=== PATIENT | male | born 1940 | race African-American/Black ===

== ENCOUNTER 2016-09-21 06:42 | Inpatient (IN) | payer OTHER, BC ==
--- NOTE | 2016-09-21 07:10 | PDOC ---
History of Present Illness - General History Source: Patient, Old Records Exam Limitations: No Limitations - History of Present Illness Initial Comments: 09/21/16 07:25 The patient is a 75-year-old man with a significant past medical history of hypertension, diabetes mellitus, chronic obstructive pulmonary disease ( intubated in the past; last intubation was approximately 6 months ago), end- stage renal disease (on hemodialysis; q. M/W/F, last hemo-dialysis was on Monday and he received a full session) who presents to the emergency department for further evaluation of shortness of breath. Upon ER arrival, patient was noted to have an oxygen saturation of 89%, with a heart rate of 78 bpm, respiratory rate of 28, and blood pressure of 163/93. Patient was immediately placed on 3L nasal cannula with a noted improvement of his oxygen saturation to 96%. As per patient, he reports he has been short of breath since yesterday. He reports compliance with home albuterol treatments that provided temporary relief. He also reports associated symptoms of an intermittent productive cough with dark-green sputum. No fever, chills, weakness, chest pain, lightheadedness , dizzinesses, palpitation, headaches, abdominal pain, nausea, vomiting, diarrhea. No urinary complaints. Patient underwent a stress test on 01/19/2016 that was indicative for moderate inferior reversible defect that suggests mild ischemia with an ejection fraction of 43%. He also underwent an echocardiogram dated 12/17/2014 indicative for an impaired LV relaxation, mild mitral annular calcification, trace mitral regurgitation and mild tricuspid regurgitation. Allergies: No Known Drug Allergies Past Surgical History: Left AV fistula placement. Social History: No Tobacco, EtOH and recreational drug use. Primary Care Physician: Dr. Bonilla Valentine Manager Business Information: Dr. Val Reed Forge Hand: Dr. Margaret Howell Racquet Maker: Dr. Dameon Laws <Nay Mckeon - Last Filed: 09/21/16 09:17> - General History Source: Patient, Old Records Exam Limitations: No Limitations <Sara Fuentes - Last Filed: 09/21/16 10:09> - General Chief Complaint: Shortness of Breath Stated Complaint: DIFFICULTY BREATHING Time Seen by Provider: 09/21/16 07:09 Past History <Nay Mckeon - Last Filed: 09/21/16 09:17> - Past Medical History Asthma: Yes Diabetes: Yes HTN: Yes Suicide Attempt (Hx): No - Psycho/Social/Smoking Cessation Hx Suicidal Ideation: No Smoking History: Never smoked Have you smoked in the past 12 months: No Number of Cigarettes Smoked Daily: 0 If you are a former smoker, when did you quit?: 10YRS AGO Hx Alcohol Use: No Drug/Substance Use Hx: No Substance Use Type: None <Sara Fuentes - Last Filed: 09/21/16 10:09> - Past Medical History Allergies/Adverse Reactions: Allergies Allergy/AdvReac Type Severity Reaction Status Date / Time No Known Drug Allergies Allergy Verified 09/21/16 06:50 Home Medications: Ambulatory Orders Amlodipine Besylate [Norvasc -] 10 mg PO DAILY 12/17/14 Aspirin [Ecotrin] 81 mg PO DAILY 12/17/14 Carvedilol 25 mg PO BID 12/17/14 Glimepiride 4 mg PO BID 12/17/14 Ipratropium/Albuterol Sulfate [Combivent Respimat Inhal [place]] 14.7 gm IH DAILY 12/17/14 Latanoprost 0.005% Eye Drops [Xalatan 0.005% Eye Drops -] 0.005 drop OU DAILY Salmeterol/Fluticasone [Advair 100Mcg/50Mcg -] 1 inh IH DAILY 12/17/14 Sevelamer Carbonate [Renvela -] 800 mg PO TID 12/17/14 Simvastatin [Zocor -] 20 mg PO HS 12/17/14 Sitagliptin Phosphate [Januvia] 25 mg PO DAILY 12/17/14 Tiotropium [place] [Spiriva] 18 mcg IH DAILY 12/17/14 Docusate Sodium [Colace -] 100 mg PO TID 09/21/16 Review of Systems - Review of Systems Able to Perform ROS?: Yes Comments:: 09/21/16 07:27 CONSTITUTIONAL: Absent: fever, chills, diaphoresis, generalized weakness, malaise, loss of appetite HEENT: Absent: rhinorrhea, nasal congestion, throat pain, throat swelling, difficulty swallowing, mouth swelling, ear pain, eye pain, visual Changes CARDIOVASCULAR: Absent: chest pain, syncope, palpitations, irregular heart rate , lightheadedness, peripheral edema RESPIRATORY: Present: Cough. Shortness of Breath. Absent: dyspnea with exertion , orthopnea, wheezing, stridor, hemoptysis GASTROINTESTINAL:Absent: abdominal pain, abdominal distension, nausea, vomiting , diarrhea, constipation, melena, hematochezia GENITOURINARY: Absent: dysuria, frequency, urgency, hesitancy, hematuria, flank pain, genital pain MUSCULOSKELETAL: Absent: myalgia, arthralgia, joint swelling SKIN: Absent: rash, itching, pallor HEMATOLOGIC/IMMUNOLOGIC: Absent: easy bleeding, easy bruising, lymphadenopathy, frequent infections ENDOCRINE:Absent: unexplained weight gain, unexplained weight loss, heat intolerance, cold intolerance NEUROLOGIC: Absent: headache, focal weakness or paresthesias, dizziness, unsteady gait, seizure, mental status changes, bladder or bowel incontinence PSYCHIATRIC: Absent: anxiety, depression, suicidal or homicidal ideation, hallucinations <Nay Mckeon - Last Filed: 09/21/16 09:17> *Physical Exam - Vital Signs Last Vital Signs Temp Pulse Resp BP Pulse Ox 98 F 78 28 H 163/93 93 L 09/21/16 06:53 09/21/16 06:56 09/21/16 06:53 09/21/16 06:53 09/21/16 06:56 - Physical Exam Comments: 09/21/16 07:27 GENERAL: Well developed, well nourished. Awake and alert. No acute distress. HEENT: Normocephalic, atraumatic. PERRLA, EOMI. No conjunctival pallor. Sclera are non-icteric. Moist mucous membranes. Oropharynx is clear. NECK: Supple. Full ROM. No JVD. CARDIOVASCULAR: Regular rate and rhythm. No murmurs, rubs, or gallops. PULMONARY: +Diffuse wheezing in all lung yoder with rhonchi at the bilateral bases. ABDOMINAL: Soft. Non-tender. Non-distended. No rebound or guarding. No organomegaly. Normoactive bowel sounds. MUSCULOSKELETAL: Normal range of motion at all joints. No bony deformities or tenderness. No CVA tenderness. EXTREMITIES: No cyanosis. No clubbing. No peripheral edema. No calf tenderness. SKIN: Warm and dry. Normal capillary refill. No rashes. No jaundice. NEUROLOGICAL: Alert, awake, appropriate. Cranial nerves 2-12 intact. Normal speech. PSYCHIATRIC: Cooperative. Good eye contact. Appropriate mood and affect. <MikeNay - Last Filed: 09/21/16 09:17> - Vital Signs Last Vital Signs Temp Pulse Resp BP Pulse Ox 98 F 78 28 H 163/93 93 L 09/21/16 06:53 09/21/16 06:56 09/21/16 06:53 09/21/16 06:53 09/21/16 06:56 <Sara Fuentes - Last Filed: 09/21/16 10:09> Heart Score/ECG Review #1 09/21/16 07:36 Reviewed and interpreted by Dr. Sara Fuentes IMPRESSION: Right bundle branch block with a rate of [address] segment changes. No significant changed form prior EKG dated 10/20/2015 for comparison <MikeNay - Last Filed: 09/21/16 09:17> ED Treatment Course - LABORATORY CBC & Chemistry Diagram: 09/21/16 07:15 09/21/16 07:15 <Nay Mckeon - Last Filed: 09/21/16 09:17> - LABORATORY CBC & Chemistry Diagram: 09/21/16 07:15 09/21/16 07:15 <Sara Fuentes - Last Filed: 09/21/16 10:09> Medical Decision Making - Medical Decision Making 09/21/16 09:[address] Margaret Howell. Expecting Dr. Zavala to respond to the page. 09/21/16 09:[address] Bean Zavala. Case was discussed. 09/21/16 09:12 MicroBlogged Hospitalist. 09/21/16 09:17 Response by Hospitalist Nurse Practitioner, Aicha Boyd. Case was discussed. Accepts case. <MikeNay - Last Filed: 09/21/16 09:17> - Medical Decision Making 09/21/16 07:17 75 y/o male with h/o COPD, DM, HTN, ESRD on HD MWF (last dialysis was on Monday and he completed a normal session), glaucoma presents to the ED with c/o SOB since yesterday. DDx includes but is not limited to: COPD exacerbation, CHF, ACS, PNA, anemia, electrolyte abnormality, toxic/metabolic derangement. Plan: 1. EKG 2. Labs 3. CXR 4. Duoneb tx 5. Solumedrol 6. CXR 7. Observe and re-evaluate 09/21/16 10:08 Addendum: The labs were reviewed and are noted in the EMR. Chest x-ray was negative for acute pulmonary disease. The potassium was 5.4 but there were no EKG changes that were significant for hyperkalemia. After for DuoNeb treatments the patient's rhonchi were improved and he was moving good air but still had significant wheezing. I've spoken to the patient's ad terminal makeup operator who will arrange for dialysis today. The plan is to admit the patient to the hospital. Of note his troponin is elevated at 0.13. He has had elevated troponins in the past. We'll trend those troponins on [facility] floor. <Sara Fuentes - Last Filed: 09/21/16 10:09> *DC/Admit/Observation/Transfer - Attestations Scribe Attestion: 09/21/16 07:27 Documentation prepared by Nay Mckeon, acting as center medical specialist for Sara Fuentes MD. <Nay Mckeon - Last Filed: 09/21/16 09:17> - Discharge Dispostion Admit: Yes - Attestations Physician Attestion: 09/21/16 07:21 I, Dr. Sara Fuentes, attest that the scribes documentation that appears above has been prepared under my direction and personally reviewed by me in its entirety. I confirmed that the note above accurately reflects all work, treatment, procedures, and medical decision-making performed by me. <Sara Fuentes - Last Filed: 09/21/16 10:09> Diagnosis at time of Disposition: Shortness of breath, COPD exacerbation, ESRD (end stage renal disease) on dialysis - Discharge Dispostion Condition at time of disposition: Stable - Referrals Referrals: Bonilla Leslie MD [Primary Care Provider] -
[2016-09-21] MEDS ORDERED: methylPREDNISolone NA SUCC 125 MG/2 ML VIAL IVPB ONE (07:14)
[2016-09-21] MEDS ORDERED: ALBUTEROL SO4 2.5/IPRATROPIUM 0.5 INH SOL 3 ML VIAL.NEB. NEB ONE ×3 (07:15→09:01)
[2016-09-21] MEDS ORDERED: methylPREDNISolone NA SUCC 125 MG/2 ML VIAL ONE (07:15)
[2016-09-21] MEDS: ALBUTEROL SO4 2.5/IPRATROPIUM 0.5 INH SOL 3 ML VIAL.NEB. NEB SCH ×4 (07:27→09:25)
[2016-09-21 07:39] LABS: BASOPHIL 0.3 % (0-2.0); EOSINOPHIL 0.3 % (0-4.5); MCH 33.8 pg (25.7-33.7); MCHC 33.7 g/dl (32.0-35.9); MEAN CELL VOLUME 100.5 fl (80-96); MEAN PLT VOLUME 8.4 fl (7.5-11.1); NEUTROPHILS 78.4 % (42.8-82.8); PLATELET COUNT 102 K/MM3 (134-434); WHITE BLOOD COUNT 6.3 K/mm3 (4.0-10.0)
[2016-09-21 07:56] LABS: BILIRUBIN,TOTAL 0.9 mg/dL (0.2-1.0); CALCIUM 7.9 mg/dL (8.5-10.1)
[2016-09-21 08:01] LABS: TROPONIN I 0.13 ng/ml (0.00-0.05)
[2016-09-21 08:17] LABS: CREATININE 11.7 mg/dL (0.7-1.3)
--- NOTE | 2016-09-21 09:16 | HP ---
CHIEF COMPLAINT: Shortness of breath PCP: Dr. Leslie Arboriculturist: Dr. Laws Quality Control Checker: Dr. Azul HISTORY OF PRESENT ILLNESS: This is a 75 year old male with a history of ESRD on HD (M/W/F, last treatment Monday), COPD (not on home O2, history of intubation during exacerbation approximately 1 year ago at a hospital in [place]), HTN, NIDDM, and glaucoma who presents with his family for evaluation of worsening shortness of breath since last night. He also reports cough productive of yellow sputum. He denies fevers/chills, chest pain, increase in LE edema, or any other symptoms. ER course was notable for: (1) EKG: RBBB with a rate of [address] segment changes. No significant changed form prior EKG dated 10/20/2015 (2) K 5.4 (3) Troponin 0.13 (4) CXR: No acute process Recent Travel: None PAST MEDICAL HISTORY: As above PAST SURGICAL HISTORY: AVF Social History: Lives with , daughter, and son. 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 Smoking: Former smoker, quit 15 yrs ago Alcohol: None Drugs: None Allergies No Known Drug Allergies Allergy (Verified 09/21/16 06:50) HOME MEDICATIONS: Home Medications Medication Instructions Recorded Amlodipine Besylate [Norvasc -] 10 mg PO DAILY 12/17/14 Aspirin [Ecotrin] 81 mg PO DAILY 12/17/14 Carvedilol 25 mg PO BID 12/17/14 Glimepiride 4 mg PO BID 12/17/14 Ipratropium/Albuterol Sulfate 14.7 gm IH DAILY 12/17/14 [Combivent Respimat Inhal [place]] Latanoprost 0.005% Eye Drops 0.005 drop OU DAILY 12/17/14 [Xalatan 0.005% Eye Drops -] Salmeterol/Fluticasone [Advair 1 inh IH DAILY 12/17/14 100Mcg/50Mcg -] Sevelamer Carbonate [Renvela -] 800 mg PO TID 12/17/14 Simvastatin [Zocor -] 20 mg PO HS 12/17/14 Sitagliptin Phosphate [Januvia] 25 mg PO DAILY 12/17/14 Tiotropium [place] [Spiriva] 18 mcg IH DAILY 12/17/14 Cinacalcet HCl [Sensipar] 30 mg PO DAILY 09/21/16 Docusate Sodium [Colace -] 100 mg PO TID 09/21/16 REVIEW OF SYSTEMS CONSTITUTIONAL: Absent: fever, chills, diaphoresis, generalized weakness, malaise, loss of appetite, weight change HEENT: Absent: rhinorrhea, nasal congestion, throat pain, throat swelling, difficulty swallowing, mouth swelling, ear pain, eye pain, visual changes CARDIOVASCULAR: Absent: chest pain, syncope, palpitations, irregular heart rate, lightheadedness , peripheral edema RESPIRATORY: See HPI GASTROINTESTINAL: Absent: abdominal pain, abdominal distension, nausea, vomiting, diarrhea, constipation, melena, hematochezia GENITOURINARY: Anuric Absent: flank pain, genital pain MUSCULOSKELETAL: Absent: myalgia, arthralgia, joint swelling, back pain, neck pain SKIN: Absent: rash, itching, pallor HEMATOLOGIC/IMMUNOLOGIC: Absent: easy bleeding, easy bruising, lymphadenopathy, frequent infections ENDOCRINE: Absent: unexplained weight gain, unexplained weight loss, heat intolerance, cold intolerance NEUROLOGIC: Absent: headache, focal weakness or paresthesias, dizziness, unsteady gait, seizure, mental status changes, bladder or bowel incontinence PSYCHIATRIC: Absent: anxiety, depression, suicidal or homicidal ideation, hallucinations. PHYSICAL EXAMINATION Vital Signs - 24 hr 09/21/16 09/21/16 06:53 06:56 Temperature 98 F Pulse Rate 78 78 Respiratory 28 H Rate Blood Pressure 163/93 O2 Sat by Pulse 89 L 93 L Oximetry (%) GENERAL: Awake, alert, and fully oriented, in no acute distress. HEAD: Normal with no signs of trauma. EYES: Pupils equal, round and reactive to light, extraocular movements intact, sclera anicteric, conjunctiva clear. No lid lag. EARS, NOSE, THROAT: Ears normal, nares patent, oropharynx clear without exudates. Moist mucous membranes. NECK: Normal range of motion, supple without lymphadenopathy, JVD, or masses. LUNGS: Tachypneic. Expiratory wheezing in all lung yoder with poor air entry bilaterally. Able to speak in full sentences and maintaining saturation on O2/ nebulizers via facemask. HEART: Regular rate and rhythm, normal S1 and S2 without murmur, rub or gallop. ABDOMEN: Soft, nontender, not distended, normoactive bowel sounds, no guarding, no rebound, no masses. No hepatomegaly or splenomegaly. MUSCULOSKELETAL: Normal range of motion at all joints. No bony deformities or tenderness. No CVA tenderness. UPPER EXTREMITIES: 2+ pulses, warm, well-perfused. No cyanosis. No clubbing. No peripheral edema. LOWER EXTREMITIES: 2+ pulses, warm, well-perfused. No calf tenderness. Trace LE edema bilaterally. NEUROLOGICAL: Cranial nerves II-XII intact. Normal speech. Normal gait. PSYCHIATRIC: Cooperative. Good eye contact. Appropriate mood and affect. SKIN: Warm, dry, normal turgor, no rashes or lesions noted, normal capillary refill. Laboratory Results - last 24 hr 09/21/16 09/21/16 09/21/16 07:15 07:15 07:15 WBC 6.3 D RBC 3.60 L Hgb 12.2 D Hct 36.2 MCV 100.5 H MCHC 33.7 RDW 16.0 H D Plt Count 102 L D MPV 8.4 Neutrophils % 78.4 Lymphocytes % 12.6 D Monocytes % 8.4 Eosinophils % 0.3 Basophils % 0.3 Sodium 134 L Potassium 5.4 H Chloride 97 L Carbon Dioxide 24 D Anion Gap 13 BUN 55 H D Creatinine 11.7 H* D Creat Clearance w eGFR 4.26 Random Glucose 105 D Calcium 7.9 L Total Bilirubin 0.9 D AST 30 D ALT 20 D Alkaline Phosphatase 90 Creatine Kinase 270 D Creatine Kinase Index 2.7 CK-MB (CK-2) 7.306 H CK-MB (CK-2) Rel Index Cancelled Troponin I 0.13 H D B-Natriuretic Peptide 65707.03 H Total Protein 7.0 Albumin 4.0 D ASSESSMENT/PLAN: 75 year old male with COPD exacerbation. Problem List - Problem (1) COPD exacerbation Assessment/Plan: -Received Solu-Medrol 125mg IVPB in ED -Continue 40mg IVPB q8h, taper as tolerated -DuoNebs q4 standing -Supplemental O2 as needed -Pulmonary evaluation Code(s): J44.1 - CHRONIC OBSTRUCTIVE PULMONARY DISEASE W (ACUTE) EXACERBATION (2) Elevated troponin Assessment/Plan: -In the setting of ESRD with HD due today -No EKG changes, no chest pain -Trend Code(s): R74.8 - ABNORMAL LEVELS OF OTHER SERUM ENZYMES (3) ESRD (end stage renal disease) on dialysis Assessment/Plan: -For HD today -Continue Renvela, Sensipar -Renal diet Code(s): N18.6 - END STAGE RENAL DISEASE Z99.2 - DEPENDENCE ON RENAL DIALYSIS (4) HTN (hypertension) Assessment/Plan: -Above goal -Continue Norvasc, Coreg -Re-assess after HD Code(s): I10 - ESSENTIAL (PRIMARY) HYPERTENSION (5) Diabetes Assessment/Plan: -Hold Januvia while inpatient -FSACHS -ISS -Diabetic diet Code(s): E11.9 - TYPE 2 DIABETES MELLITUS WITHOUT COMPLICATIONS (6) Hyperkalemia Assessment/Plan: -No EKG changes -Expect resolution with HD -Follow Code(s): E87.5 - HYPERKALEMIA (7) DVT prophylaxis Assessment/Plan: -Ambulation -[facility] Code(s): IVM9538 - Visit type - Emergency Visit Emergency Visit: Yes ED Registration Date: 09/21/16 Care time: The patient presented to the Emergency Department on the above date and was hospitalized for further evaluation of their emergent condition. - New Patient This patient is new to me today: Yes Date on this admission: 09/21/16 - Critical Care Critical Care patient: No
[2016-09-21] MEDS ORDERED: ACETAMINOPHEN 325 MG TABLET (FP) PO PRN (09:42)
[2016-09-21] MEDS ORDERED: ONDANSETRON 4 MG/2 ML VIAL IVPB PRN (09:42)
[2016-09-21] MEDS ORDERED: methylPREDNISolone NA SUCC 40 MG/1 ML VIAL IVPB SCH ×2 (10:00→15:00)
[2016-09-21] MEDS ORDERED: amLODIPine BESYLATE 5 MG TABLET (FP) ONE (11:08)
[2016-09-21] MEDS ORDERED: CARVEDILOL 12.5 MG TABLET (FP) ONE (11:08)
[2016-09-21] MEDS: HEPARIN NA (PORCINE) 5,000 UNITS/ML 1ML VIAL SQ SCH ×2 (11:34→21:37)
[2016-09-21] MEDS: ASPIRIN COATED 81 MG TABLET.EC PO SCH (11:34)
[2016-09-21] MEDS: CARVEDILOL 25 MG TABLET (FP) PO SCH ×2 (11:34→21:04)
[2016-09-21] MEDS: amLODIPine BESYLATE 10 MG TABLET (FP) PO SCH (11:34)
[2016-09-21] MEDS: CINACALCET HCL 30 MG TAB (FP) PO SCH (11:35)
[2016-09-21] MEDS ORDERED: ALBUTEROL SO4 2.5/IPRATROPIUM 0.5 INH SOL 3 ML VIAL.NEB. NEB SCH (12:00)
--- NOTE | 2016-09-21 12:52 | CONSULT ---
Consult - text type - Consultation Consultation Note: Renal Consult for ESRD on HD This is a 75 year old Gentleman with PMhx of ESRD on HD (MWF at [facility]), COPD, Hypertension, DM Type 2 who presented from the dialysis unit with difficulty breathing and found to have acute COPD exacerbation. Pt states that his COPD is usually well controlled. Denies any chest pain, N/V/D, fever, chills. No sick contract. Last dialysis was on Monday. Has a AVF. No access problems. Denies any swelling in the legs. Pt is anuric now. PMhx: as above Allergies: NKDA Family hx: NC Social Hx: No T/A/D ROS: As per HPI, all other pertinent ros negative Home Meds: Home Medications Medication Instructions Recorded Amlodipine Besylate [Norvasc -] 10 mg PO DAILY 12/17/14 Aspirin [Ecotrin] 81 mg PO DAILY 12/17/14 Carvedilol 25 mg PO BID 12/17/14 Glimepiride 4 mg PO BID 12/17/14 Ipratropium/Albuterol Sulfate 14.7 gm IH DAILY 12/17/14 [Combivent Respimat Inhal [place]] Latanoprost 0.005% Eye Drops 0.005 drop OU DAILY 12/17/14 [Xalatan 0.005% Eye Drops -] Salmeterol/Fluticasone [Advair 1 inh IH DAILY 12/17/14 100Mcg/50Mcg -] Sevelamer Carbonate [Renvela -] 800 mg PO TID 12/17/14 Simvastatin [Zocor -] 20 mg PO HS 12/17/14 Sitagliptin Phosphate [Januvia] 25 mg PO DAILY 12/17/14 Tiotropium [place] [Spiriva] 18 mcg IH DAILY 12/17/14 Docusate Sodium [Colace -] 100 mg PO TID 09/21/16 Vital Signs Temperature 98 F 09/21/16 06:53 Pulse Rate 78 09/21/16 06:56 Respiratory Rate 28 H 09/21/16 06:53 Blood Pressure 163/93 09/21/16 06:53 O2 Sat by Pulse Oximetry (%) 99 09/21/16 07:15 Intake & Output 09/18/16 09/19/16 09/20/16 09/21/16 23:59 23:59 23:59 23:59 Weight 194 lb 3.636 oz Gen: NAD, awake and alert HEENT: NC/AT, MMM, No JVD CVS: RRR, no M/R Lungs: Dec BS, no rales Abd: soft NT/ND ext: no edema, clubbing or cyanosis Access: Left ARM AVF CBC, BMP 09/21/16 07:15 09/21/16 07:15 Current Medications Acetaminophen (Tylenol -) 650 mg PO Q4H PRN PRN Reason: FEVER OR PAIN Albuterol/Ipratropium (Duoneb -) 1 amp NEB QIDR [facility] Amlodipine Besylate (Norvasc -) 10 mg PO DAILY [facility] Last Admin: 09/21/16 11:34 Dose: 10 mg Aspirin (Ecotrin -) 81 mg PO DAILY [facility] Last Admin: 09/21/16 11:34 Dose: 81 mg Atorvastatin Calcium (Lipitor -) 10 mg PO HS [facility] Carvedilol (Coreg -) 25 mg PO BID [facility] Last Admin: 09/21/16 11:34 Dose: 25 mg Cinacalcet (Sensipar -) 30 mg PO DAILY [facility] Last Admin: 09/21/16 11:35 Dose: Not Given Docusate Sodium (Colace -) 100 mg PO TID [facility] Heparin Sodium (Porcine) (Heparin -) 5,000 unit SQ BID [facility] Last Admin: 09/21/16 11:34 Dose: 5,000 unit Insulin Aspart (Novolog Vial Sliding Scale -) 1 vial SQ ACHS [facility] PRN Reason: Protocol Latanoprost (Xalatan 0.005% Eye Drops -) 1 drop OU HS [facility] Methylprednisolone Sodium Succinate (Solu-Medrol -) 40 mg IVPB Q8H-IV [facility] Last Admin: 09/21/16 11:35 Dose: 40 mg Ondansetron HCl (Zofran Injection) 4 mg IVPB Q6H PRN PRN Reason: NAUSEA Sevelamer Carbonate (Renvela -) 800 mg PO TIDCM [facility] A/P 75 year old Gentleman with PMhx of ESRD on HD (MWF at [facility]), COPD, Hypertension , DM Type 2 who presented from the dialysis unit with difficulty breathing and found to have acute COPD exacerbation. #COPD exacerbation s/p Duo-Nebs on IV solumederol consider pulmonary eval #ESRD on HD For HD today will UF to dry weight of 86kg dose all meds for intermittent HD #Hypertension continue Coreg #Renal Osteodystrphy continue Sensipar, Renvela Trend PHos and CA #Mild Hyponatremia and Hyperkalemia expect to correct with HD Thank you Bean Zavala DO
--- NOTE | 2016-09-21 13:24 | EKG ---
Test Reason : Blood Pressure : / mmHG Vent. Rate : 081 BPM Atrial Rate : 081 BPM P-R Int : 156 ms QRS Dur : 154 ms QT Int : 410 ms P-R-T Axes : 063 -69 052 degrees QTc Int : 476 ms NORMAL SINUS RHYTHM RIGHT BUNDLE BRANCH BLOCK LEFT ANTERIOR FASCICULAR BLOCK BIFASCICULAR BLOCK MINIMAL VOLTAGE CRITERIA FOR LVH, MAY BE NORMAL VARIANT ABNORMAL ECG WHEN COMPARED WITH ECG OF 20-OCT-2015 12:07, NO SIGNIFICANT CHANGE WAS FOUND Confirmed by LYNN CHAN, COCO ([id number]) on 09/21/2016 1:23:31 PM Referred By: Confirmed By:COCO BAILEY MD
[2016-09-21] MEDS ORDERED: ALBUTEROL SO4 0.083% IH SOL 2.5 MG/3 ML VIAL.NEB. NEB PRN (13:32)
--- NOTE | 2016-09-21 13:36 | CONSULT ---
Consultation: REQUESTING PROVIDER: CONSULT REQUEST: We have been asked to medically evaluate this patient for ( pulmonology). HISTORY OF PRESENT ILLNESS: This is a 75 year old male with a history of ESRD on HD (M/W/, last treatment Monday), COPD (not on home O2, history of intubation during exacerbation approximately 1 year ago at a hospital in [place]), HTN, NIDDM, came to hospital with a complaint of sob. Patient states that sob started last morning and he took his inhalers, cough syrup but sob kept on increasing and he came to hospital this morning. Denies orthopnea, pedal edema, fever, chills. States he has cough from yesterday morning and produces yellow color sputum. Denies sick contact. Denies orthopnea, pedal edema, fever, chills. In ed patient got duoneb and solumedrol but he still complains of sob and is wheezing. On NC 3L, 97 spo2 diffuse b/l expiratory wheez . REVIEW OF SYSTEMS: CONSTITUTIONAL: Absent: fever, chills, diaphoresis, HEENT: Absent: rhinorrhea, nasal congestion, throat pain, throat swelling, CARDIOVASCULAR: Absent: chest pain, syncope, palpitations, irregular heart rate, lightheadedness , peripheral edema RESPIRATORY: Absent: cough, shortness of breath, , orthopnea, wheezing, stridor, hemoptysis GASTROINTESTINAL: Absent: abdominal pain, abdominal distension, nausea, vomiting, PHYSICAL EXAMINATION Vital Signs - 24 hr 09/21/16 09/21/16 11:00 13:07 Pulse Rate [ 76 78 Radial] Respiratory 18 18 Rate Blood Pressure 153/73 151/72 [Right Arm] O2 Sat by Pulse 95 99 Oximetry (%) GENERAL: Awake, alert, and fully oriented, HEAD: Normal with no signs of trauma. EYES: Pupils equal, round and reactive to light, EARS, NOSE, THROAT: oropharynx clear without exudates. NECK: Normal range of motion, supple without lymphadenopathy, JVD, LUNGS: b/l decreased air entry, diffuse wheezing b/l in expiration HEART:s1s2 normal ABDOMEN: Soft, nontender, not distended, normoactive bowel sounds, UPPER EXTREMITIES: 2+ pulses, warm, well-perfused. . LOWER EXTREMITIES: warm, . No calf tenderness. No peripheral edema. Active Medications Generic Name Dose Route Start Last Admin Trade Name Freq PRN Reason Stop Dose Admin Acetaminophen 650 mg 09/21/16 09:42 Tylenol - PO Q4H PRN FEVER OR PAIN Albuterol Sulfate 1 amp 09/21/16 13:32 Ventolin 0.083% Nebulizer Soln - NEB Q4H PRN SHORT OF BREATH/WHEEZING Albuterol/Ipratropium 1 amp 09/21/16 12:00 Duoneb - NEB QIDR SANDEEP Amlodipine Besylate 10 mg 09/21/16 10:00 09/21/16 11:34 Norvasc - PO 10 mg DAILY SANDEEP Administration Aspirin 81 mg 09/21/16 10:00 09/21/16 11:34 Ecotrin - PO 81 mg DAILY SANDEEP Administration Atorvastatin Calcium 10 mg 09/21/16 22:00 Lipitor - PO HS [facility] Carvedilol 25 mg 09/21/16 10:00 09/21/16 11:34 Coreg - PO 25 mg BID SANDEEP Administration Cinacalcet 30 mg 09/21/16 10:00 09/21/16 11:35 Sensipar - PO Not Given DAILY [facility] Docusate Sodium 100 mg 09/21/16 14:00 Colace - PO TID [facility] Heparin Sodium (Porcine) 5,000 unit 09/21/16 10:00 09/21/16 11:34 Heparin - SQ 5,000 unit BID [facility] Administration Azithromycin 500 mg/ Dextrose 250 mls @ 250 mls/hr 09/22/16 10:00 IVPB DAILY [facility] Insulin Aspart 1 vial 09/21/16 11:00 Novolog Vial Sliding Scale - SQ ACHS [facility] Protocol Latanoprost 1 drop 09/21/16 10:00 Xalatan 0.005% Eye Drops - OU HS [facility] Magnesium Sulfate 1 gm 09/21/16 13:35 Magnesium Sulfate IVPB 09/21/16 13:36 ONCE ONE Methylprednisolone Sodium Succinate 40 mg 09/21/16 15:00 Solu-Medrol - IVPB Q6H-IV SANDEEP Sevelamer Carbonate 800 mg 09/21/16 12:00 Renvela - PO TIDCM [facility] CBCD WBC 6.3 K/mm3 (4.0-10.0) D 09/21/16 07:15 RBC 3.60 M/mm3 (4.00-5.60) L 09/21/16 07:15 Hgb 12.2 GM/dL (11.7-16.9) D 09/21/16 07:15 Hct 36.2 % (35.4-49) 09/21/16 07:15 MCV 100.5 fl (80-96) H 09/21/16 07:15 MCHC 33.7 g/dl (32.0-35.9) 09/21/16 07:15 RDW 16.0 % (11.9-15.9) H D 09/21/16 07:15 Plt Count 102 K/MM3 (134-434) L D 09/21/16 07:15 MPV 8.4 fl (7.5-11.1) 09/21/16 07:15 CMP Sodium 134 mmol/L (136-145) L 09/21/16 07:15 Potassium 5.4 mmol/L (3.5-5.1) H 09/21/16 07:15 Chloride 97 mmol/L (98-107) L 09/21/16 07:15 Carbon Dioxide 24 mmol/L (21-32) D 09/21/16 07:15 Anion Gap 13 (8-16) 09/21/16 07:15 BUN 55 mg/dL (7-18) H D 09/21/16 07:15 Creatinine 11.7 mg/dL (0.7-1.3) H* D 09/21/16 07:15 Creat Clearance w eGFR 4.26 (>60) 09/21/16 07:15 Random Glucose 105 mg/dL (74-106) D 09/21/16 07:15 Calcium 7.9 mg/dL (8.5-10.1) L 09/21/16 07:15 Total Bilirubin 0.9 mg/dL (0.2-1.0) D 09/21/16 07:15 AST 30 U/L (15-37) D 09/21/16 07:15 ALT 20 U/L (12-78) D 09/21/16 07:15 Alkaline Phosphatase 90 U/L (45-117) 09/21/16 07:15 Total Protein 7.0 g/dl (6.4-8.2) 09/21/16 07:15 Albumin 4.0 g/dl (3.4-5.0) D 09/21/16 07:15 CARDIAC ENZYMES Creatine Kinase 270 IU/L (39-308) D 09/21/16 07:15 Troponin I 0.13 ng/ml (0.00-0.05) H D 09/21/16 07:15 ASSESSMENT/PLAN: #COPD exacerbation # URI ? pneumonia #ESRD on HD # h/o Hypertension # h/o DM # hyponatremia # hyperkalemia #lung nodule Plan Iv solumedrol 60mg q6h IV magnesium 1gm once albuterol neb q6h sandeep spiriva inhaler daily symbicort bid oxygen keep spo2> 90 get sputum culture iv azithromycin monitor ad control BP outpatient follow up with pulmonolgist for lung nodule HD as per nephrology dvt prophylaxis: on heparin Dispo: We will continue to follow the patient. Thank you for this consultative opportunity. Visit type - Emergency Visit Emergency Visit: Yes ED Registration Date: 09/21/16 Care time: The patient presented to the Emergency Department on the above date and was hospitalized for further evaluation of their emergent condition. - New Patient This patient is new to me today: Yes Date on this admission: 09/21/16 - Critical Care Critical Care patient: No
[2016-09-21] MEDS ORDERED: MAGNESIUM SULF 50% (8.12 MEQ/2 ML-1 GM VIAL) IVPB ONE (14:30)
[2016-09-21] MEDS: SEVELAMER CARBONATE 800 MG TAB (FP) PO SCH ×2 (14:40→17:25)
[2016-09-21] MEDS: DOCUSATE SODIUM 100 MG CAPSULE (FP) PO SCH ×2 (14:40→21:04)
[2016-09-21] MEDS: INSULIN SLIDING SCALE (NOVOLOG) 1 VIAL SQ SCH ×3 (14:40→21:13)
--- NOTE | 2016-09-21 14:55 | PN ---
Teaching Attending Note Name of Resident: Edmund Webber ATTENDING PHYSICIAN STATEMENT I saw and evaluated the patient. I reviewed the resident's note and discussed the case with the resident. I agree with the resident's findings and plan as documented. PULMONARY IMP ACUTE HYPOXEMIC RESPIRATORY FAILURE SECONDARY TO COPD EXACERBATION URI ESRD ON HD HTN DM HYPONATREMIA HYPERKALEMIA PULMONARY NODULE PLAN IV STEROIDS INHALED BRONCHODILATORS ANTIBIOTICS NASAL O2 SPUTUM C+S CHEST CT HD PER RENAL DR STRAUSS Problem List - Problems (1) COPD exacerbation Code(s): J44.1 - CHRONIC OBSTRUCTIVE PULMONARY DISEASE W (ACUTE) EXACERBATION (2) DVT prophylaxis Code(s): OHT1324 - (3) Diabetes Code(s): E11.9 - TYPE 2 DIABETES MELLITUS WITHOUT COMPLICATIONS Qualifiers: Diabetes mellitus type: type 2 Diabetes mellitus complication status: with kidney complications Diabetes mellitus complication detail: with chronic kidney disease Diabetes mellitus fci insulin use: without intermediate project manager use Chronic kidney disease stage: on chronic dialysis Qualified Code(s): E11.22 - Type 2 diabetes mellitus with diabetic chronic kidney disease; N18.1 - Chronic kidney disease, stage 1; Z79.4 - intermediate project manager ( current) use of insulin (4) ESRD (end stage renal disease) on dialysis Code(s): N18.6 - END STAGE RENAL DISEASE Z99.2 - DEPENDENCE ON RENAL DIALYSIS (5) HTN (hypertension) Code(s): I10 - ESSENTIAL (PRIMARY) HYPERTENSION Qualifiers: Hypertension type: essential hypertension Qualified Code(s): I10 - Essential (primary) hypertension (6) Hyperkalemia Code(s): E87.5 - HYPERKALEMIA (7) Shortness of breath Code(s): R06.02 - SHORTNESS OF BREATH (8) Acute hypoxemic respiratory failure Code(s): J96.01 - ACUTE RESPIRATORY FAILURE WITH HYPOXIA
[2016-09-21 15:06] LABS: TROPONIN I 0.13 ng/ml (0.00-0.05)
[2016-09-21] MEDS: methylPREDNISolone NA SUCC 125 MG/2 ML VIAL IVPB SCH ×2 (16:18→21:04)
[2016-09-21] MEDS: LATANOPROST 0.005% OPHTH SOLN 2.5ML BOTTLE OU SCH ×2 (16:19→22:12)
[2016-09-21 18:21] VITALS: BMI 26.6
[2016-09-21] MEDS: ALBUTEROL SO4 0.083% IH SOL 2.5 MG/3 ML VIAL.NEB. NEB SCH ×2 (18:53→23:39)
[2016-09-21 20:06] LABS: TROPONIN I 0.1 ng/ml (0.00-0.05)
[2016-09-21] MEDS: ATORVASTATIN CA 10 MG TABLET (FP) PO SCH (21:05)
[2016-09-21] MEDS: BUDESONIDE/FORMETEROL FUMARATE 160/4.5 mcg INHALER IH SCH (21:09)
[2016-09-22] MEDS ORDERED: ALBUTEROL SO4 0.083% IH SOL 2.5 MG/3 ML VIAL.NEB. NEB PRN (01:26)
[2016-09-22] MEDS: ALBUTEROL SO4 2.5/IPRATROPIUM 0.5 INH SOL 3 ML VIAL.NEB. NEB SCH ×5 (02:00→23:21)
[2016-09-22] MEDS: methylPREDNISolone NA SUCC 125 MG/2 ML VIAL IVPB SCH ×4 (02:23→22:01)
[2016-09-22] MEDS: DOCUSATE SODIUM 100 MG CAPSULE (FP) PO SCH ×3 (06:29→22:02)
[2016-09-22] MEDS: INSULIN SLIDING SCALE (NOVOLOG) 1 VIAL SQ SCH ×4 (06:29→22:21)
[2016-09-22 07:05] LABS: BASOPHIL 0.1 % (0-2.0); MCH 33.8 pg (25.7-33.7); MCHC 33.8 g/dl (32.0-35.9); MEAN CELL VOLUME 99.9 fl (80-96); MEAN PLT VOLUME 8.4 fl (7.5-11.1); NEUTROPHILS 86.4 % (42.8-82.8); PLATELET COUNT 100 K/MM3 (134-434); RDW 15.7 % (11.9-15.9); WHITE BLOOD COUNT 4.8 K/mm3 (4.0-10.0)
[2016-09-22 07:44] LABS: ALBUMIN 3.4 g/dl (3.4-5.0); CALCIUM 8.3 mg/dL (8.5-10.1); MAGNESIUM 2.5 mg/dL (1.8-2.4)
[2016-09-22 07:56] LABS: BILIRUBIN,TOTAL 0.7 mg/dL (0.2-1.0); COCKROFT - GAULT 8.48; TOT PROT 6.2 g/dl (6.4-8.2); TROPONIN I 0.11 ng/ml (0.00-0.05)
[2016-09-22] MEDS: SEVELAMER CARBONATE 800 MG TAB (FP) PO SCH ×3 (08:56→17:40)
[2016-09-22 09:18] LABS: CREATININE 8.7 mg/dL (0.7-1.3)
[2016-09-22] MEDS ORDERED: TIOTROPIUM BROMIDE 18 MCG/INH (DEVICE W/ 5 CAPSULES) IH SCH ×2 (10:00→22:00)
[2016-09-22] MEDS: CINACALCET HCL 30 MG TAB (FP) PO SCH (10:08)
[2016-09-22] MEDS: amLODIPine BESYLATE 10 MG TABLET (FP) PO SCH (10:08)
[2016-09-22] MEDS: CARVEDILOL 25 MG TABLET (FP) PO SCH ×2 (10:09→22:02)
[2016-09-22] MEDS: HEPARIN NA (PORCINE) 5,000 UNITS/ML 1ML VIAL SQ SCH ×2 (10:09→22:02)
[2016-09-22] MEDS: AZITHROMYCIN IVPB 250 ML IVPB SCH (10:09)
[2016-09-22] MEDS: BUDESONIDE/FORMETEROL FUMARATE 160/4.5 mcg INHALER IH SCH ×2 (10:09→22:02)
[2016-09-22] MEDS: ASPIRIN COATED 81 MG TABLET.EC PO SCH (10:09)
--- NOTE | 2016-09-22 10:13 | PN ---
Teaching Attending Note Name of Resident: Theodore Miner ATTENDING PHYSICIAN STATEMENT I saw and evaluated the patient. I reviewed the resident's note and discussed the case with the resident. I agree with the resident's findings and plan as documented. SUBJECTIVE: Patient is c/o having difficulty breathing. No fever or chills, no headache. OBJECTIVE: Vital Signs Temperature 98 F 09/22/16 06:00 Pulse Rate 86 09/22/16 06:00 Respiratory Rate 30 H 09/22/16 06:00 Blood Pressure 130/67 09/22/16 06:00 O2 Sat by Pulse Oximetry (%) 95 09/21/16 21:00 CBCD WBC 4.8 K/mm3 (4.0-10.0) 09/22/16 06:20 RBC 3.41 M/mm3 (4.00-5.60) L 09/22/16 06:20 Hgb 11.5 GM/dL (11.7-16.9) L 09/22/16 06:20 Hct 34.1 % (35.4-49) L 09/22/16 06:20 MCV 99.9 fl (80-96) H 09/22/16 06:20 MCHC 33.8 g/dl (32.0-35.9) 09/22/16 06:20 RDW 15.7 % (11.9-15.9) 09/22/16 06:20 Plt Count 100 K/MM3 (134-434) L 09/22/16 06:20 MPV 8.4 fl (7.5-11.1) 09/22/16 06:20 CMP Sodium 140 mmol/L (136-145) 09/22/16 06:20 Potassium 4.8 mmol/L (3.5-5.1) 09/22/16 06:20 Chloride 99 mmol/L (98-107) 09/22/16 06:20 Carbon Dioxide 29 mmol/L (21-32) D 09/22/16 06:20 Anion Gap 12 (8-16) 09/22/16 06:20 BUN 41 mg/dL (7-18) H D 09/22/16 06:20 Creatinine 8.7 mg/dL (0.7-1.3) H* D 09/22/16 06:20 Creat Clearance w eGFR 6.00 (>60) 09/22/16 06:20 Random Glucose 148 mg/dL (74-106) H D 09/22/16 06:20 Calcium 8.3 mg/dL (8.5-10.1) L 09/22/16 06:20 Total Bilirubin 0.7 mg/dL (0.2-1.0) D 09/22/16 06:20 AST 22 U/L (15-37) D 09/22/16 06:20 ALT 17 U/L (12-78) 09/22/16 06:20 Alkaline Phosphatase 70 U/L (45-117) D 09/22/16 06:20 Total Protein 6.2 g/dl (6.4-8.2) L 09/22/16 06:20 Albumin 3.4 g/dl (3.4-5.0) 09/22/16 06:20 CARDIAC ENZYMES Creatine Kinase 199 IU/L (39-308) 09/21/16 19:00 Troponin I 0.11 ng/ml (0.00-0.05) H 09/22/16 06:20 Current Medications Generic Name Dose Route Start Last Admin Trade Name Freq PRN Reason Stop Dose Admin Acetaminophen 650 mg 09/21/16 09:42 Tylenol - PO Q4H PRN FEVER OR PAIN Albuterol Sulfate 1 amp 09/22/16 01:26 Ventolin 0.083% Nebulizer Soln - NEB Q4H PRN WHEEZING Albuterol/Ipratropium 1 amp 09/22/16 01:26 09/22/16 06:05 Duoneb - NEB 1 amp QIDR MADELIN Administration Amlodipine Besylate 10 mg 09/21/16 10:00 09/21/16 11:34 Norvasc - PO 10 mg DAILY MADELIN Administration Aspirin 81 mg 09/21/16 10:00 09/21/16 11:34 Ecotrin - PO 81 mg DAILY MADELIN Administration Atorvastatin Calcium 10 mg 09/21/16 22:00 09/21/16 21:05 Lipitor - PO 10 mg HS MADELIN Administration Budesonide/Formoterol Fumarate 2 puff 09/21/16 22:00 09/21/16 21:09 Symbicort 160/4.5mcg - IH 2 puff BID MADELIN Administration Carvedilol 25 mg 09/21/16 10:00 09/21/16 21:04 Coreg - PO 25 mg BID MADELIN Administration Cinacalcet 30 mg 09/21/16 10:00 09/21/16 11:35 Sensipar - PO Not Given DAILY COUNTS INCLUDE 234 BEDS AT THE [facility] Docusate Sodium 100 mg 09/21/16 14:00 09/22/16 06:29 Colace - PO 100 mg TID MADELIN Administration Heparin Sodium (Porcine) 5,000 unit 09/21/16 10:00 09/21/16 21:37 Heparin - SQ 5,000 unit BID MADELIN Administration Azithromycin 250 mls @ 250 mls/hr 09/22/16 10:00 Zithromax 500mg Ivpb (Pre-Docked) IVPB DAILY COUNTS INCLUDE 234 BEDS AT THE [facility] Insulin Aspart 1 vial 09/21/16 11:00 09/22/16 06:29 Novolog Vial Sliding Scale - SQ Not Given ACHS COUNTS INCLUDE 234 BEDS AT THE [facility] Protocol Latanoprost 1 drop 09/21/16 10:00 09/21/16 22:12 Xalatan 0.005% Eye Drops - OU 1 drop HS COUNTS INCLUDE 234 BEDS AT THE [facility] Administration Methylprednisolone Sodium Succinate 60 mg 09/21/16 15:00 09/22/16 08:56 Solu-Medrol - IVPB 60 mg Q6H-IV COUNTS INCLUDE 234 BEDS AT THE [facility] Administration Sevelamer Carbonate 800 mg 09/21/16 12:00 09/22/16 08:56 Renvela - PO 800 mg TIDCM COUNTS INCLUDE 234 BEDS AT THE [facility] Administration Tiotropium [place] 1 puff 09/22/16 10:00 Spiriva - IH DAILY COUNTS INCLUDE 234 BEDS AT THE [facility] Home Medications Medication Instructions Recorded Amlodipine Besylate [Norvasc -] 10 mg PO DAILY 12/17/14 Aspirin [Ecotrin] 81 mg PO DAILY 12/17/14 Carvedilol 25 mg PO BID 12/17/14 Glimepiride 4 mg PO BID 12/17/14 Ipratropium/Albuterol Sulfate 14.7 gm IH DAILY 12/17/14 [Combivent Respimat Inhal [place]] Latanoprost 0.005% Eye Drops 0.005 drop OU DAILY 12/17/14 [Xalatan 0.005% Eye Drops -] Salmeterol/Fluticasone [Advair 1 inh IH DAILY 12/17/14 100Mcg/50Mcg -] Sevelamer Carbonate [Renvela -] 800 mg PO TID 12/17/14 Simvastatin [Zocor -] 20 mg PO HS 12/17/14 Sitagliptin Phosphate [Januvia] 25 mg PO DAILY 12/17/14 Tiotropium [place] [Spiriva] 18 mcg IH DAILY 12/17/14 Docusate Sodium [Colace -] 100 mg PO TID 09/21/16 PE: as per resident's note ASSESSMENT AND PLAN: Patient is a 75 year old Gentleman with PMhx of ESRD on HD (MWF at [facility]), COPD, Hypertension, DM Type 2 who presented from the dialysis unit with difficulty breathing and found to have acute COPD exacerbation. # Acute COPD exacerbation on IV solu medrol 60mg q6 ,continue Nebs txs , Zithromax. Pulmonary consult appreciated . #ESRD on HD ([facility] Dr Zavala on the case, will be going for HD in am ; continue Sensipar, Renvela, check phos and calcium level # Hx of DM continue meds # Hx of Cataract continue Xalatan # Hx of HTN continue meds. DVT Px: Heparin sq
[2016-09-22] MEDS ORDERED: PT OWN MED DRAWER 7, Y5N ONE ×2 (12:28→21:56)
[2016-09-22] MEDS ORDERED: INSULIN (NOVOLOG) ASPART 100 UNITS/ML 10ML VIAL ONE ×2 (12:28→21:57)
--- NOTE | 2016-09-22 12:42 | PN ---
Progress Note (short form) - Note Progress Note: PULMONARY Breathing better but still with cough, wheezing and shortness of breath. +cough with brown sputum. No fevers or chills. Last Vital Signs Temp Pulse Resp BP Pulse Ox 98 F 82 20 125/63 95 09/22/16 06:00 09/22/16 10:00 09/22/16 10:00 09/22/16 10:00 09/21/16 21:00 Gen: NAD at rest Heart: RRR Lung: scattered rhonchi, wheezes Abd: soft, nontender Ext: no edema CBC, BMP 09/22/16 06:20 09/22/16 06:20 Active Medications Acetaminophen (Tylenol -) 650 mg PO Q4H PRN PRN Reason: FEVER OR PAIN Albuterol Sulfate (Ventolin 0.083% Nebulizer Soln -) 1 amp NEB Q4H PRN PRN Reason: WHEEZING Albuterol/Ipratropium (Duoneb -) 1 amp NEB QIDR [facility] Last Admin: 09/22/16 11:00 Dose: 1 amp Amlodipine Besylate (Norvasc -) 10 mg PO DAILY [facility] Last Admin: 09/22/16 10:08 Dose: 10 mg Aspirin (Ecotrin -) 81 mg PO DAILY [facility] Last Admin: 09/22/16 10:09 Dose: 81 mg Atorvastatin Calcium (Lipitor -) 10 mg PO HS [facility] Last Admin: 09/21/16 21:05 Dose: 10 mg Budesonide/Formoterol Fumarate (Symbicort 160/4.5mcg -) 2 puff IH BID [facility] Last Admin: 09/22/16 10:09 Dose: 2 puff Carvedilol (Coreg -) 25 mg PO BID [facility] Last Admin: 09/22/16 10:09 Dose: 25 mg Cinacalcet (Sensipar -) 30 mg PO DAILY [facility] Last Admin: 09/22/16 10:08 Dose: 30 mg Docusate Sodium (Colace -) 100 mg PO TID [facility] Last Admin: 09/22/16 06:29 Dose: 100 mg Heparin Sodium (Porcine) (Heparin -) 5,000 unit SQ BID [facility] Last Admin: 09/22/16 10:09 Dose: 5,000 unit Azithromycin (Zithromax 500mg Ivpb (Pre-Docked)) 250 mls @ 250 mls/hr IVPB DAILY [facility] Last Admin: 09/22/16 10:09 Dose: 250 mls/hr Insulin Aspart (Novolog Vial Sliding Scale -) 1 vial SQ ACHS [facility] PRN Reason: Protocol Last Admin: 09/22/16 12:30 Dose: 2 units Latanoprost (Xalatan 0.005% Eye Drops -) 1 drop OU HS [facility] Last Admin: 09/21/16 22:12 Dose: 1 drop Methylprednisolone Sodium Succinate (Solu-Medrol -) 60 mg IVPB Q6H-IV [facility] Last Admin: 09/22/16 08:56 Dose: 60 mg Sevelamer Carbonate (Renvela -) 800 mg PO TIDCM [facility] Last Admin: 09/22/16 12:30 Dose: 800 mg Tiotropium [place] (Spiriva -) 1 puff IH HS [facility] A/P Acute Hypoxic Respiratory Failure improving Acute COPD Exacerbation Acute Bronchitis ESRD on HD HTN DM Lung Nodule - continue medrol at current dose - if continues to improve, can start to taper medrol in AM - inhaled bronchodilators - o2 as needed - HD per renal - continue antibiotics - continued outpt f/u of lung nodule - DVT prophylaxis
--- NOTE | 2016-09-22 14:38 | PN ---
Progress Note (short form) - Note Progress Note: Renal follow up for ESRD on HD Pt seen and examined at the bedside sob is improved on IV steroids denies any chest pain s/p dialysis yesterday Vital Signs Temperature 98 F 09/22/16 06:00 Pulse Rate 82 09/22/16 10:00 Respiratory Rate 20 09/22/16 10:00 Blood Pressure 125/63 09/22/16 10:00 O2 Sat by Pulse Oximetry (%) 95 09/21/16 21:00 Intake & Output 09/19/16 09/20/16 09/21/16 09/22/16 23:59 23:59 23:59 23:59 Intake Total 250 300 Balance 250 300 Weight 180 lb 4.8 oz Gen: NAD, awake and alert CVS: RRR, no M/R Lungs: Dec BS, no rales Abd: soft NT/ND ext: no edema, clubbing or cyanosis Access: Left ARM AVF CBC, BMP 09/22/16 06:20 09/22/16 06:20 Laboratory Tests 09/22/16 06:20 Calcium 8.3 L Magnesium 2.5 H D Albumin 3.4 Current Medications Acetaminophen (Tylenol -) 650 mg PO Q4H PRN PRN Reason: FEVER OR PAIN Albuterol Sulfate (Ventolin 0.083% Nebulizer Soln -) 1 amp NEB Q4H PRN PRN Reason: WHEEZING Albuterol/Ipratropium (Duoneb -) 1 amp NEB QIDR [facility]PL[facility] BY [facility] Last Admin: 09/22/16 11:00 Dose: 1 amp Amlodipine Besylate (Norvasc -) 10 mg PO DAILY [facility] Last Admin: 09/22/16 10:08 Dose: 10 mg Aspirin (Ecotrin -) 81 mg PO DAILY [facility] Last Admin: 09/22/16 10:09 Dose: 81 mg Atorvastatin Calcium (Lipitor -) 10 mg PO HS [facility] Last Admin: 09/21/16 21:05 Dose: 10 mg Budesonide/Formoterol Fumarate (Symbicort 160/4.5mcg -) 2 puff IH BID [facility] Last Admin: 09/22/16 10:09 Dose: 2 puff Carvedilol (Coreg -) 25 mg PO BID [facility] Last Admin: 09/22/16 10:09 Dose: 25 mg Cinacalcet (Sensipar -) 30 mg PO DAILY [facility] Last Admin: 05/11/17 10:08 Dose: 30 mg Docusate Sodium (Colace -) 100 mg PO TID [facility] Last Admin: 09/22/16 06:29 Dose: 100 mg Heparin Sodium (Porcine) (Heparin -) 5,000 unit SQ BID [facility] Last Admin: 09/22/16 10:09 Dose: 5,000 unit Azithromycin (Zithromax 500mg Ivpb (Pre-Docked)) 250 mls @ 250 mls/hr IVPB DAILY [facility] Last Admin: 09/22/16 10:09 Dose: 250 mls/hr Insulin Aspart (Novolog Vial Sliding Scale -) 1 vial SQ ACHS REPLACED BY [facility] PRN Reason: Protocol Last Admin: 09/22/16 12:30 Dose: 2 units Latanoprost (Xalatan 0.005% Eye Drops -) 1 drop OU HS [facility]PLACED BY [facility] Last Admin: 09/21/16 22:12 Dose: 1 drop Methylprednisolone Sodium Succinate (Solu-Medrol -) 60 mg IVPB Q6H-IV [facility]PL[facility]ED BY [facility] Last Admin: 09/22/16 08:56 Dose: 60 mg Sevelamer Carbonate (Renvela -) 800 mg PO TIDCM REPLACED BY [facility] Last Admin: 09/22/16 12:30 Dose: 800 mg Tiotropium [place] (Spiriva -) 1 puff IH HS REPLACED BY [facility] A/P 75 year old Gentleman with PMhx of ESRD on HD (MWF at [facility]), COPD, Hypertension , DM Type 2 who presented from the dialysis unit with difficulty breathing and found to have acute COPD exacerbation. #COPD exacerbation Continue steroids and Nebs as per Pulmonary #ESRD on HD no acute indication for dialysis today next treatment tomorrow uF as tolerated #Renal Osteodystrphy continue Sensipar, Renvela Trend PHos and CA Thank you Bean Zavala DO
--- NOTE | 2016-09-22 16:46 | PN ---
Physical Exam: SUBJECTIVE: Patient seen and examined at bedside. No overnight events. No new complaints. Breathing is improved. Denies CP,DANIELS, abd. pain, N/V. OBJECTIVE: Vital Signs Period Temp Pulse Resp BP Sys/Mota Pulse Ox Last 24 Hr 98 F-99.6 F 65-100 18-30 97-137/62-80 95-99 GENERAL: AAOx3 NAD HEAD: NC/AT EYES: PERRL, extraocular movements intact, sclera anicteric, conjunctiva clear. No ptosis. ENT: moist mucous membranes. NECK: supple, no jvd LUNGS: decreased breath sounds bilat. Scattered rhonchi, mild wheezing. HEART: Regular rate and rhythm, S1, S2 without murmur, rub or gallop. ABDOMEN: Soft, NT, ND, BS(+) EXTREMITIES: 2+ pulses, warm, well-perfused, no edema. NEUROLOGICAL: Cranial nerves II through XII grossly intact. Normal speech, gait not observed. PSYCH: Normal mood, normal affect. SKIN: Warm, dry, normal turgor, no rashes or lesions noted Laboratory Results - last 24 hr 09/21/16 09/21/16 09/21/16 17:07 19:00 19:00 WBC RBC Hgb Hct MCV MCHC RDW Plt Count MPV Neutrophils % Lymphocytes % Monocytes % Eosinophils % Basophils % Sodium Potassium Chloride Carbon Dioxide Anion Gap BUN Creatinine Creat Clearance w eGFR POC Glucometer 152 Random Glucose Calcium Magnesium Total Bilirubin AST ALT Alkaline Phosphatase Creatine Kinase 199 CK-MB (CK-2) Rel Index Cancelled Troponin I 0.10 H B-Natriuretic Peptide Total Protein Albumin 09/21/16 09/22/16 09/22/16 21:12 05:38 06:20 WBC 4.8 RBC 3.41 L Hgb 11.5 L Hct 34.1 L MCV 99.9 H MCHC 33.8 RDW 15.7 Plt Count 100 L MPV 8.4 Neutrophils % 86.4 H Lymphocytes % 9.9 D Monocytes % 3.6 L Eosinophils % 0.0 D Basophils % 0.1 Sodium Potassium Chloride Carbon Dioxide Anion Gap BUN Creatinine Creat Clearance w eGFR POC Glucometer 144 143 Random Glucose Calcium Magnesium Total Bilirubin AST ALT Alkaline Phosphatase Creatine Kinase CK-MB (CK-2) Rel Index Troponin I B-Natriuretic Peptide Total Protein Albumin 09/22/16 09/22/16 06:20 12:20 WBC RBC Hgb Hct MCV MCHC RDW Plt Count MPV Neutrophils % Lymphocytes % Monocytes % Eosinophils % Basophils % Sodium 140 Potassium 4.8 Chloride 99 Carbon Dioxide 29 D Anion Gap 12 BUN 41 H D Creatinine 8.7 H* D Creat Clearance w eGFR 6.00 POC Glucometer 177 Random Glucose 148 H D Calcium 8.3 L Magnesium 2.5 H D Total Bilirubin 0.7 D AST 22 D ALT 17 Alkaline Phosphatase 70 D Creatine Kinase CK-MB (CK-2) Rel Index Troponin I 0.11 H B-Natriuretic Peptide 23113.60 H Total Protein 6.2 L Albumin 3.4 Active Medications Generic Name Dose Route Start Last Admin Trade Name Freq PRN Reason Stop Dose Admin Acetaminophen 650 mg 09/21/16 09:42 Tylenol - PO Q4H PRN FEVER OR PAIN Albuterol Sulfate 1 amp 09/22/16 01:26 Ventolin 0.083% Nebulizer Soln - NEB Q4H PRN WHEEZING Albuterol/Ipratropium 1 amp 09/22/16 01:26 09/22/16 11:00 Duoneb - NEB 1 amp QIDR MADELIN Administration Amlodipine Besylate 10 mg 09/21/16 10:00 09/22/16 10:08 Norvasc - PO 10 mg DAILY MADELIN Administration Aspirin 81 mg 09/21/16 10:00 09/22/16 10:09 Ecotrin - PO 81 mg DAILY MADELIN Administration Atorvastatin Calcium 10 mg 09/21/16 22:00 09/21/16 21:05 Lipitor - PO 10 mg HS MADELIN Administration Budesonide/Formoterol Fumarate 2 puff 09/21/16 22:00 09/22/16 10:09 Symbicort 160/4.5mcg - IH 2 puff BID MADELIN Administration Carvedilol 25 mg 09/21/16 10:00 09/22/16 10:09 Coreg - PO 25 mg BID MADELIN Administration Cinacalcet 30 mg 09/21/16 10:00 09/22/16 10:08 Sensipar - PO 30 mg DAILY MADELIN Administration Docusate Sodium 100 mg 09/21/16 14:00 09/22/16 14:48 Colace - PO 100 mg TID MADELIN Administration Heparin Sodium (Porcine) 5,000 unit 09/21/16 10:00 09/22/16 10:09 Heparin - SQ 5,000 unit BID MADELIN Administration Azithromycin 250 mls @ 250 mls/hr 09/22/16 10:00 09/22/16 10:09 Zithromax 500mg Ivpb (Pre-Docked) IVPB 250 mls/hr DAILY MADELIN Administration Insulin Aspart 1 vial 09/21/16 11:00 09/22/16 12:30 Novolog Vial Sliding Scale - SQ 2 units ACHS MADELIN Administration Protocol Latanoprost 1 drop 09/21/16 10:00 09/21/16 22:12 Xalatan 0.005% Eye Drops - OU 1 drop HS MADELIN Administration Methylprednisolone Sodium Succinate 60 mg 09/21/16 15:00 09/22/16 14:49 Solu-Medrol - IVPB 60 mg Q6H-IV MADELIN Administration Sevelamer Carbonate 800 mg 09/21/16 12:00 09/22/16 12:30 Renvela - PO 800 mg TIDCM MADELIN Administration Tiotropium [place] 1 puff 09/22/16 22:00 Spiriva - IH HS MADELIN ASSESSMENT/PLAN: 75 yo M with significant PMHx of ESRD and COPD admitted for acute respiratory failure. Problem List - Problems (1) COPD exacerbation Assessment/Plan: * Seen by Pulmonary * Methylprednisolone Sodium Succinate 60 mg IVPB Q6H-IV * Albuterol Sulfate 1 amp NEB Q4H PRN * Albuterol/Ipratropium 1 amp NEB QIDR * Budesonide/Formoterol Fumarate 2 puff IH BID * Azithromycin (Zithromax 500mg Ivpb 250 mls @ 250 mls/hr IVPB DAILY * Tiotropium Bromide1 puff IH HS * Supplemental O2 via NC maintain SpO2 >90% (2) Diabetes Assessment/Plan: * ADA diet * ISS ACHS * BGM ACHS (3) ESRD (end stage renal disease) on dialysis Assessment/Plan: * Seen by nephrology Dr. Zavala * will dialyze tomorrow. (4) HTN (hypertension) Assessment/Plan: * BP well controlled will continue home meds: * Amlodipine Besylate (Norvasc -) 10 mg PO DAILY MADELIN * Carvedilol (Coreg -) 25 mg PO BID MADELIN (5) DVT prophylaxis Assessment/Plan: * Heparin 5000units BID SQ * Visit type - Emergency Visit Emergency Visit: Yes ED Registration Date: 09/21/16 Care time: The patient presented to the Emergency Department on the above date and was hospitalized for further evaluation of their emergent condition. - New Patient This patient is new to me today: Yes Date on this admission: 09/22/16 - Critical Care Critical Care patient: No
[2016-09-22] MEDS ORDERED: BENZOCAINE/MENTH/CETYLPYRD CL 1 EACH LOZENGE MM PRN (18:12)
[2016-09-22] MEDS: ATORVASTATIN CA 10 MG TABLET (FP) PO SCH (22:01)
[2016-09-22] MEDS: LATANOPROST 0.005% OPHTH SOLN 2.5ML BOTTLE OU SCH (23:12)
[2016-09-23] MEDS: methylPREDNISolone NA SUCC 125 MG/2 ML VIAL IVPB SCH ×4 (02:45→17:10)
[2016-09-23] MEDS: ALBUTEROL SO4 2.5/IPRATROPIUM 0.5 INH SOL 3 ML VIAL.NEB. NEB SCH ×2 (06:50→11:52)
[2016-09-23] MEDS: DOCUSATE SODIUM 100 MG CAPSULE (FP) PO SCH ×3 (06:55→21:58)
[2016-09-23] MEDS: INSULIN SLIDING SCALE (NOVOLOG) 1 VIAL SQ SCH ×4 (06:58→22:01)
[2016-09-23 08:42] LABS: MCH 33.8 pg (25.7-33.7); MEAN CELL VOLUME 99.4 fl (80-96); MEAN PLT VOLUME 8.8 fl (7.5-11.1); PLATELET COUNT 108 K/MM3 (134-434); RDW 15.9 % (11.9-15.9); WHITE BLOOD COUNT 6.9 K/mm3 (4.0-10.0)
[2016-09-23 09:09] LABS: ALBUMIN 3.3 g/dl (3.4-5.0); CALCIUM 8.3 mg/dL (8.5-10.1); PHOSPHOROUS 6.6 mg/dL (2.5-4.9)
[2016-09-23 09:20] LABS: BILIRUBIN,TOTAL 0.5 mg/dL (0.2-1.0); COCKROFT - GAULT 6.83
[2016-09-23 09:33] LABS: CREATININE 10.8 mg/dL (0.7-1.3)
--- NOTE | 2016-09-23 10:16 | PN ---
Physical Exam: SUBJECTIVE: Patient seen and examined at bedside. No overnight events. No new complaints. Breathing is better today. Denies CP,DANIELS, abd. pain, N/V. OBJECTIVE: Vital Signs Period Temp Pulse Resp BP Sys/Mota Pulse Ox Last 24 Hr 97.6 F-99.1 F 79-95 18-22 105-144/62-83 98 GENERAL: AAOx3 NAD HEAD: NC/AT EYES: PERRL, extraocular movements intact, sclera anicteric, conjunctiva clear. No ptosis. ENT: moist mucous membranes. NECK: supple, no jvd LUNGS: decreased breath sounds bilat. Scattered rhonchi, mild wheezing. HEART: Regular rate and rhythm, S1, S2 without murmur, rub or gallop. ABDOMEN: Soft, NT, ND, BS(+) EXTREMITIES: 2+ pulses, warm, well-perfused, no edema. NEUROLOGICAL: Cranial nerves II through XII grossly intact. Normal speech, gait not observed. PSYCH: Normal mood, normal affect. SKIN: Warm, dry, normal turgor, no rashes or lesions noted Laboratory Results - last 24 hr 09/22/16 09/22/16 09/22/16 12:20 16:57 22:19 WBC RBC Hgb Hct MCV MCHC RDW Plt Count MPV Sodium Potassium Chloride Carbon Dioxide Anion Gap BUN Creatinine Creat Clearance w eGFR POC Glucometer 177 169 131 Random Glucose Calcium Phosphorus Total Bilirubin AST ALT Alkaline Phosphatase Total Protein Albumin 09/23/16 09/23/16 09/23/16 06:55 07:30 07:30 WBC 6.9 D RBC 3.27 L Hgb 11.1 L Hct 32.5 L MCV 99.4 H MCHC 34.0 RDW 15.9 Plt Count 108 L MPV 8.8 Sodium 136 Potassium 4.8 Chloride 94 L Carbon Dioxide 24 Anion Gap 18 H BUN 67 H D Creatinine 10.8 H* D Creat Clearance w eGFR 4.68 POC Glucometer 147 Random Glucose 148 H Calcium 8.3 L Phosphorus 6.6 H D Total Bilirubin 0.5 D AST 18 ALT 18 Alkaline Phosphatase 65 Total Protein 6.0 L Albumin 3.3 L Active Medications Generic Name Dose Route Start Last Admin Trade Name Freq PRN Reason Stop Dose Admin Acetaminophen 650 mg 09/21/16 09:42 Tylenol - PO Q4H PRN FEVER OR PAIN Albuterol Sulfate 1 amp 05/11/17 01:26 09/23/16 04:50 Ventolin 0.083% Nebulizer Soln - NEB 1 amp Q4H PRN Administration WHEEZING Albuterol/Ipratropium 1 amp 09/22/16 01:26 09/23/16 06:50 Duoneb - NEB Not Given QIDR MADELIN Amlodipine Besylate 10 mg 09/21/16 10:00 09/22/16 10:08 Norvasc - PO 10 mg DAILY MADELIN Administration Aspirin 81 mg 09/21/16 10:00 09/22/16 10:09 Ecotrin - PO 81 mg DAILY MADELIN Administration Atorvastatin Calcium 10 mg 09/21/16 22:00 09/22/16 22:01 Lipitor - PO 10 mg HS MADELIN Administration Benzocaine/Menthol 1 each 09/22/16 18:12 09/22/16 18:59 Cepacol Lozenge - MM 1 each PRN PRN Administration SORE THROAT Budesonide/Formoterol Fumarate 2 puff 09/21/16 22:00 09/22/16 22:02 Symbicort 160/4.5mcg - IH 2 puff BID MADELIN Administration Carvedilol 25 mg 09/21/16 10:00 09/22/16 22:02 Coreg - PO 25 mg BID MADELIN Administration Cinacalcet 30 mg 09/21/16 10:00 09/22/16 10:08 Sensipar - PO 30 mg DAILY MADELIN Administration Docusate Sodium 100 mg 09/21/16 14:00 09/23/16 06:55 Colace - PO 100 mg TID MADELIN Administration Heparin Sodium (Porcine) 5,000 unit 09/21/16 10:00 09/22/16 22:02 Heparin - SQ 5,000 unit BID [facility] Administration Azithromycin 250 mls @ 250 mls/hr 09/22/16 10:00 09/22/16 10:09 Zithromax 500mg Ivpb (Pre-Docked) IVPB 250 mls/hr DAILY MADELIN Administration Insulin Aspart 1 vial 09/21/16 11:00 09/23/16 06:58 Novolog Vial Sliding Scale - SQ Not Given ACHS [facility] Protocol Latanoprost 1 drop 09/21/16 10:00 09/22/16 23:12 Xalatan 0.005% Eye Drops - OU Not Given HS MADELIN Methylprednisolone Sodium Succinate 60 mg 09/21/16 15:00 09/23/16 02:45 Solu-Medrol - IVPB 60 mg Q6H-IV MADELIN Administration Sevelamer Carbonate 800 mg 09/21/16 12:00 09/22/16 17:40 Renvela - PO 800 mg TIDCM MADELIN Administration Tiotropium [place] 1 puff 09/22/16 22:00 09/22/16 22:17 Spiriva - IH 1 puff HS MADELIN Administration ASSESSMENT/PLAN: 75 yo M with significant PMHx of ESRD and COPD admitted for acute respiratory failure. Problem List - Problems (1) COPD exacerbation Assessment/Plan: * breathing has improved better air movement. * Seen by Pulmonary * Reduce Methylprednisolone 60 mg IVPB to Q8H * Albuterol Sulfate 1 amp NEB Q4H PRN * Albuterol/Ipratropium 1 amp NEB QIDR * Budesonide/Formoterol Fumarate 2 puff IH BID * Continue - Azithromycin (Zithromax 500mg Ivpb 250 mls @ 250 mls/hr IVPB DAILY * Tiotropium Bromide1 puff IH HS * Supplemental O2 via NC maintain SpO2 >90% (2) Diabetes Assessment/Plan: * ADA diet * ISS ACHS * BGM ACHS (3) ESRD (end stage renal disease) on dialysis Assessment/Plan: * Seen by nephrology Dr. Zavala * Will dialyze today (4) HTN (hypertension) Assessment/Plan: * BP well controlled will continue home meds: * Amlodipine Besylate (Norvasc -) 10 mg PO DAILY MADELIN * Carvedilol (Coreg -) 25 mg PO BID MADELIN (5) DVT prophylaxis Assessment/Plan: * Heparin 5000units BID SQ * Visit type - Emergency Visit Emergency Visit: Yes ED Registration Date: 09/21/16 Care time: The patient presented to the Emergency Department on the above date and was hospitalized for further evaluation of their emergent condition. - New Patient This patient is new to me today: No - Critical Care Critical Care patient: No
--- NOTE | 2016-09-23 11:13 | PN ---
Physical Exam: SUBJECTIVE: Patient seen and examined Patient feels much better states breathing has improved states cough has decreased. denies fever, chills, OBJECTIVE: Vital Signs Period Temp Pulse Resp BP Sys/Mota Pulse Ox Last 24 Hr 97.6 F-99.1 F 69-95 18-22 105-144/60-83 98 GENERAL: Awake, alert, and fully oriented, EARS, NOSE, THROAT: oropharynx clear without exudates. NECK: Normal range of motion, supple without lymphadenopathy, JVD, LUNGS: b/l air entry improved, b/l diffuse wheezing but better than before HEART:s1s2 normal ABDOMEN: Soft, nontender, not distended, normoactive bowel sounds, UPPER EXTREMITIES: 2+ pulses, warm, well-perfused. . LOWER EXTREMITIES: warm, . No calf tenderness. No peripheral edema. Laboratory Results - last 24 hr 09/22/16 09/22/16 09/22/16 12:20 16:57 22:19 WBC RBC Hgb Hct MCV MCHC RDW Plt Count MPV Sodium Potassium Chloride Carbon Dioxide Anion Gap BUN Creatinine Creat Clearance w eGFR POC Glucometer 177 169 131 Random Glucose Calcium Phosphorus Total Bilirubin AST ALT Alkaline Phosphatase Total Protein Albumin 09/23/16 09/23/16 09/23/16 06:55 07:30 07:30 WBC 6.9 D RBC 3.27 L Hgb 11.1 L Hct 32.5 L MCV 99.4 H MCHC 34.0 RDW 15.9 Plt Count 108 L MPV 8.8 Sodium 136 Potassium 4.8 Chloride 94 L Carbon Dioxide 24 Anion Gap 18 H BUN 67 H D Creatinine 10.8 H* D Creat Clearance w eGFR 4.68 POC Glucometer 147 Random Glucose 148 H Calcium 8.3 L Phosphorus 6.6 H D Total Bilirubin 0.5 D AST 18 ALT 18 Alkaline Phosphatase 65 Total Protein 6.0 L Albumin 3.3 L Active Medications Generic Name Dose Route Start Last Admin Trade Name Freq PRN Reason Stop Dose Admin Acetaminophen 650 mg 09/21/16 09:42 Tylenol - PO Q4H PRN FEVER OR PAIN Albuterol Sulfate 1 amp 09/22/16 01:26 09/23/16 04:50 Ventolin 0.083% Nebulizer Soln - NEB 1 amp Q4H PRN Administration WHEEZING Albuterol/Ipratropium 1 amp 09/22/16 01:26 09/23/16 06:50 Duoneb - NEB Not Given QIDR MADELIN Amlodipine Besylate 10 mg 09/21/16 10:00 09/22/16 10:08 Norvasc - PO 10 mg DAILY MADELIN Administration Aspirin 81 mg 09/21/16 10:00 09/22/16 10:09 Ecotrin - PO 81 mg DAILY MADELIN Administration Atorvastatin Calcium 10 mg 09/21/16 22:00 09/22/16 22:01 Lipitor - PO 10 mg HS MADELIN Administration Benzocaine/Menthol 1 each 09/22/16 18:12 09/22/16 18:59 Cepacol Lozenge - MM 1 each PRN PRN Administration SORE THROAT Budesonide/Formoterol Fumarate 2 puff 09/21/16 22:00 09/22/16 22:02 Symbicort 160/4.5mcg - IH 2 puff BID MADELIN Administration Carvedilol 25 mg 09/21/16 10:00 09/22/16 22:02 Coreg - PO 25 mg BID MADELIN Administration Cinacalcet 30 mg 09/21/16 10:00 09/22/16 10:08 Sensipar - PO 30 mg DAILY MADELIN Administration Docusate Sodium 100 mg 09/21/16 14:00 09/23/16 06:55 Colace - PO 100 mg TID MADELIN Administration Heparin Sodium (Porcine) 5,000 unit 09/21/16 10:00 09/22/16 22:02 Heparin - SQ 5,000 unit BID MADELIN Administration Azithromycin 250 mls @ 250 mls/hr 09/22/16 10:00 09/22/16 10:09 Zithromax 500mg Ivpb (Pre-Docked) IVPB 250 mls/hr DAILY MADELIN Administration Insulin Aspart 1 vial 09/21/16 11:00 09/23/16 06:58 Novolog Vial Sliding Scale - SQ Not Given ACHS [facility] Protocol Latanoprost 1 drop 09/21/16 10:00 09/22/16 23:12 Xalatan 0.005% Eye Drops - OU Not Given HS MADELIN Methylprednisolone Sodium Succinate 60 mg 09/23/16 18:00 Solu-Medrol - IVPB Q8H-IV MADELIN Sevelamer Carbonate 800 mg 09/21/16 12:00 09/22/16 17:40 Renvela - PO 800 mg TIDCM MADELIN Administration Tiotropium [place] 1 puff 09/22/16 22:00 09/22/16 22:17 Spiriva - IH 1 puff HS MADELIN Administration ASSESSMENT/PLAN: # Acute Hypoxic Respiratory Failure improving # acute COPD exacerbation # acute bronchitic s # ESRD on HD # h/o Hypertension # h/o DM # hyponatremia # hyperkalemia Plan continue same dose of solumedrol 60 q8h for today. will teper tomorrow continue albuterol neb and spiriva symbicort bid oxygen prn keep spo2> 90 iv azithromycin day 3, will give for 2 more days monitor and control BP HD as per nephrology sputum culture pending dvt prophylaxis: on heparin Visit type - Emergency Visit Emergency Visit: Yes ED Registration Date: 09/21/16 Care time: The patient presented to the Emergency Department on the above date and was hospitalized for further evaluation of their emergent condition. - New Patient This patient is new to me today: No - Critical Care Critical Care patient: No
[2016-09-23] MEDS: ASPIRIN COATED 81 MG TABLET.EC PO SCH (11:34)
[2016-09-23] MEDS: CINACALCET HCL 30 MG TAB (FP) PO SCH (11:34)
[2016-09-23] MEDS: HEPARIN NA (PORCINE) 5,000 UNITS/ML 1ML VIAL SQ SCH ×2 (11:34→21:58)
[2016-09-23] MEDS: amLODIPine BESYLATE 10 MG TABLET (FP) PO SCH (11:34)
[2016-09-23] MEDS: SEVELAMER CARBONATE 800 MG TAB (FP) PO SCH ×3 (11:34→16:35)
[2016-09-23] MEDS: CARVEDILOL 25 MG TABLET (FP) PO SCH ×2 (11:35→21:58)
[2016-09-23] MEDS: AZITHROMYCIN IVPB 250 ML IVPB SCH (11:35)
[2016-09-23] MEDS: BUDESONIDE/FORMETEROL FUMARATE 160/4.5 mcg INHALER IH SCH ×2 (11:48→22:22)
[2016-09-23] MEDS ORDERED: INSULIN (NOVOLOG) ASPART 100 UNITS/ML 10ML VIAL ONE (11:50)
[2016-09-23 12:43] LABS: CREATININE 3.8 mg/dL (0.7-1.3)
--- NOTE | 2016-09-23 13:43 | PN ---
Progress Note (short form) - Note Progress Note: Renal follow up for ESRD on HD Pt seen and examined with dialysis earlier today HD tx stable UF 3L BP stable access with good function Vital Signs Temperature 98.0 F 09/23/16 11:30 Pulse Rate 78 09/23/16 11:30 Respiratory Rate 18 09/23/16 11:30 Blood Pressure 128/78 09/23/16 11:30 O2 Sat by Pulse Oximetry (%) 98 09/22/16 21:00 Intake & Output 09/20/16 09/21/16 09/22/16 09/23/16 23:59 23:59 23:59 23:59 Intake Total 250 1330 450 Balance 250 1330 450 Weight 180 lb 4.8 oz Gen: NAD, awake and alert CVS: RRR, no M/R Lungs: Dec BS, no rales Abd: soft NT/ND ext: no edema, clubbing or cyanosis Access: Left ARM AVF CBC, BMP 09/23/16 07:30 09/23/16 11:00 Laboratory Tests 09/23/16 07:30 Calcium 8.3 L Phosphorus 6.6 H D Albumin 3.3 L Current Medications Acetaminophen (Tylenol -) 650 mg PO Q4H PRN PRN Reason: FEVER OR PAIN Albuterol Sulfate (Ventolin 0.083% Nebulizer Soln -) 1 amp NEB Q4H PRN PRN Reason: WHEEZING Last Admin: 09/23/16 04:50 Dose: 1 amp Albuterol/Ipratropium (Duoneb -) 1 amp NEB QIDR [facility] Last Admin: 09/23/16 11:52 Dose: 1 amp Amlodipine Besylate (Norvasc -) 10 mg PO DAILY [facility] Last Admin: 09/23/16 11:34 Dose: 10 mg Aspirin (Ecotrin -) 81 mg PO DAILY [facility] Last Admin: 09/23/16 11:34 Dose: 81 mg Atorvastatin Calcium (Lipitor -) 10 mg PO HS [facility] Last Admin: 09/22/16 22:01 Dose: 10 mg Benzocaine/Menthol (Cepacol Lozenge -) 1 each MM PRN PRN PRN Reason: SORE THROAT Last Admin: 09/22/16 18:59 Dose: 1 each Budesonide/Formoterol Fumarate (Symbicort 160/4.5mcg -) 2 puff IH BID [facility] Last Admin: 09/23/16 11:48 Dose: 2 puff Carvedilol (Coreg -) 25 mg PO BID [facility] Last Admin: 09/23/16 11:35 Dose: 25 mg Cinacalcet (Sensipar -) 30 mg PO DAILY [facility] Last Admin: 09/23/16 11:34 Dose: 30 mg Docusate Sodium (Colace -) 100 mg PO TID [facility] Last Admin: 09/23/16 06:55 Dose: 100 mg Heparin Sodium (Porcine) (Heparin -) 5,000 unit SQ BID [facility] Last Admin: 09/23/16 11:34 Dose: 5,000 unit Azithromycin (Zithromax 500mg Ivpb (Pre-Docked)) 250 mls @ 250 mls/hr IVPB DAILY [facility] Last Admin: 09/23/16 11:35 Dose: 250 mls/hr Insulin Aspart (Novolog Vial Sliding Scale -) 1 vial SQ ACHS [facility] PRN Reason: Protocol Last Admin: 09/23/16 12:10 Dose: 6 units Latanoprost (Xalatan 0.005% Eye Drops -) 1 drop OU HS [facility] Last Admin: 09/22/16 23:12 Dose: Not Given Methylprednisolone Sodium Succinate (Solu-Medrol -) 60 mg IVPB Q8H-IV [facility] Last Admin: 09/23/16 11:35 Dose: 60 mg Sevelamer Carbonate (Renvela -) 800 mg PO TIDCM [facility] Last Admin: 09/23/16 12:10 Dose: 800 mg A/P 75 year old Gentleman with PMhx of ESRD on HD (MWF at [facility]), COPD, Hypertension , DM Type 2 who presented from the dialysis unit with difficulty breathing and found to have acute COPD exacerbation. #COPD exacerbation Continue steroids and Nebs as per Pulmonary #ESRD on HD Tolerated HD well today will maintain on MWF schedule as inpatient #Renal Osteodystrphy continue Sensipar Increase Renvela to 2 tabs TID wieth meals Trend PHos and CA Thank you Bean Zavala DO
--- NOTE | 2016-09-23 14:28 | PN ---
Teaching Attending Note Name of Resident: Edmund Webber ATTENDING PHYSICIAN STATEMENT I saw and evaluated the patient. I reviewed the resident's note and discussed the case with the resident. I agree with the resident's findings and plan as documented. PULMONARY ALERT,LESS DYSPNEIC,-CP IMP ACUTE HYPOXEMIC RESPIRATORY FAILURE SECONDARY TO COPD EXACERBATION URI ESRD ON HD HTN DM HYPONATREMIA HYPERKALEMIA PULMONARY NODULE PLAN IV STEROIDS START TAPER IN AM INHALED BRONCHODILATORS ANTIBIOTICS NASAL O2 SPUTUM C+S HD PER RENAL DR STRAUSS Problem List - Problems (1) COPD exacerbation Code(s): J44.1 - CHRONIC OBSTRUCTIVE PULMONARY DISEASE W (ACUTE) EXACERBATION (2) DVT prophylaxis Code(s): [id number] - (3) Diabetes Code(s): E11.9 - TYPE 2 DIABETES MELLITUS WITHOUT COMPLICATIONS Qualifiers: Diabetes mellitus type: type 2 Diabetes mellitus complication status: with kidney complications Diabetes mellitus complication detail: with chronic kidney disease Diabetes mellitus terminal operations supervisor insulin use: without retirement use Chronic kidney disease stage: on chronic dialysis Qualified Code(s): E11.22 - Type 2 diabetes mellitus with diabetic chronic kidney disease; N18.1 - Chronic kidney disease, stage 1; Z79.4 - skilled nursing ( current) use of insulin (4) ESRD (end stage renal disease) on dialysis Code(s): N18.6 - END STAGE RENAL DISEASE Z99.2 - DEPENDENCE ON RENAL DIALYSIS (5) HTN (hypertension) Code(s): I10 - ESSENTIAL (PRIMARY) HYPERTENSION Qualifiers: Hypertension type: essential hypertension Qualified Code(s): I10 - Essential (primary) hypertension (6) Hyperkalemia Code(s): E87.5 - HYPERKALEMIA (7) Shortness of breath Code(s): R06.02 - SHORTNESS OF BREATH (8) Acute hypoxemic respiratory failure Code(s): J96.01 - ACUTE RESPIRATORY FAILURE WITH HYPOXIA Problem List - Problems (1) COPD exacerbation Code(s): J44.1 - CHRONIC OBSTRUCTIVE PULMONARY DISEASE W (ACUTE) EXACERBATION (2) DVT prophylaxis Code(s): [id number] - (3) Diabetes Code(s): E11.9 - TYPE 2 DIABETES MELLITUS WITHOUT COMPLICATIONS Qualifiers: Diabetes mellitus type: type 2 Diabetes mellitus complication status: with kidney complications Diabetes mellitus complication detail: with chronic kidney disease Diabetes mellitus retirement insulin use: without terminal operations supervisor use Chronic kidney disease stage: on chronic dialysis Qualified Code(s): E11.22 - Type 2 diabetes mellitus with diabetic chronic kidney disease; N18.1 - Chronic kidney disease, stage 1; Z79.4 - skilled nursing ( current) use of insulin (4) ESRD (end stage renal disease) on dialysis Code(s): N18.6 - END STAGE RENAL DISEASE Z99.2 - DEPENDENCE ON RENAL DIALYSIS (5) HTN (hypertension) Code(s): I10 - ESSENTIAL (PRIMARY) HYPERTENSION Qualifiers: Hypertension type: essential hypertension Qualified Code(s): I10 - Essential (primary) hypertension (6) Hyperkalemia Code(s): E87.5 - HYPERKALEMIA (7) Shortness of breath Code(s): R06.02 - SHORTNESS OF BREATH (8) Acute hypoxemic respiratory failure Code(s): J96.01 - ACUTE RESPIRATORY FAILURE WITH HYPOXIA
--- NOTE | 2016-09-23 17:30 | PN ---
Teaching Attending Note Name of Resident: Theodore Miner ATTENDING PHYSICIAN STATEMENT I saw and evaluated the patient. I reviewed the resident's note and discussed the case with the resident. I agree with the resident's findings and plan as documented. SUBJECTIVE: Patient is feeling better today , having HD OBJECTIVE: Vital Signs Temperature 98.2 F 09/23/16 15:33 Pulse Rate 93 H 09/23/16 15:33 Respiratory Rate 20 09/23/16 15:33 Blood Pressure 123/60 09/23/16 15:33 O2 Sat by Pulse Oximetry (%) 98 09/23/16 09:00 CBCD WBC 6.9 K/mm3 (4.0-10.0) D 09/23/16 07:30 RBC 3.27 M/mm3 (4.00-5.60) L 09/23/16 07:30 Hgb 11.1 GM/dL (11.7-16.9) L 09/23/16 07:30 Hct 32.5 % (35.4-49) L 09/23/16 07:30 MCV 99.4 fl (80-96) H 09/23/16 07:30 MCHC 34.0 g/dl (32.0-35.9) 09/23/16 07:30 RDW 15.9 % (11.9-15.9) 09/23/16 07:30 Plt Count 108 K/MM3 (134-434) L 09/23/16 07:30 MPV 8.8 fl (7.5-11.1) 09/23/16 07:30 CMP Sodium 136 mmol/L (136-145) 09/23/16 07:30 Potassium 4.8 mmol/L (3.5-5.1) 09/23/16 07:30 Chloride 94 mmol/L (98-107) L 09/23/16 07:30 Carbon Dioxide 24 mmol/L (21-32) 09/23/16 07:30 Anion Gap 18 (8-16) H 09/23/16 07:30 BUN 20 mg/dL (7-18) H D 09/23/16 11:00 Creatinine 3.8 mg/dL (0.7-1.3) H 09/23/16 11:00 Creat Clearance w eGFR 4.68 (>60) 09/23/16 07:30 Random Glucose 148 mg/dL (74-106) H 09/23/16 07:30 Calcium 8.3 mg/dL (8.5-10.1) L 09/23/16 07:30 Total Bilirubin 0.5 mg/dL (0.2-1.0) D 09/23/16 07:30 AST 18 U/L (15-37) 09/23/16 07:30 ALT 18 U/L (12-78) 09/23/16 07:30 Alkaline Phosphatase 65 U/L (45-117) 09/23/16 07:30 Total Protein 6.0 g/dl (6.4-8.2) L 09/23/16 07:30 Albumin 3.3 g/dl (3.4-5.0) L 09/23/16 07:30 CARDIAC ENZYMES Creatine Kinase 199 IU/L (39-308) 09/21/16 19:00 Troponin I 0.11 ng/ml (0.00-0.05) H 09/22/16 06:20 Current Medications Generic Name Dose Route Start Last Admin Trade Name Freq PRN Reason Stop Dose Admin Acetaminophen 650 mg 09/21/16 09:42 Tylenol - PO Q4H PRN FEVER OR PAIN Aclidinium [place] 1 puff 09/23/16 22:00 Tudorza - IH BID MADELIN Albuterol Sulfate 1 amp 09/23/16 18:00 Ventolin 0.083% Nebulizer Soln - NEB QIDR MADELIN Amlodipine Besylate 10 mg 09/21/16 10:00 09/23/16 11:34 Norvasc - PO 10 mg DAILY MADELIN Administration Aspirin 81 mg 09/21/16 10:00 09/23/16 11:34 Ecotrin - PO 81 mg DAILY MADELIN Administration Atorvastatin Calcium 10 mg 09/21/16 22:00 09/22/16 22:01 Lipitor - PO 10 mg HS MADELIN Administration Benzocaine/Menthol 1 each 09/22/16 18:12 09/22/16 18:59 Cepacol Lozenge - MM 1 each PRN PRN Administration SORE THROAT Budesonide/Formoterol Fumarate 2 puff 09/21/16 22:00 09/23/16 11:48 Symbicort 160/4.5mcg - IH 2 puff BID MADELIN Administration Carvedilol 25 mg 09/21/16 10:00 05/12/17 11:35 Coreg - PO 25 mg BID MADELIN Administration Cinacalcet 30 mg 09/21/16 10:00 09/23/16 11:34 Sensipar - PO 30 mg DAILY MADELIN Administration Docusate Sodium 100 mg 09/21/16 14:00 09/23/16 14:45 Colace - PO 100 mg TID MADELIN Administration Heparin Sodium (Porcine) 5,000 unit 09/21/16 10:00 09/23/16 11:34 Heparin - SQ 5,000 unit BID MADELIN Administration Azithromycin 250 mls @ 250 mls/hr 09/22/16 10:00 09/23/16 11:35 Zithromax 500mg Ivpb (Pre-Docked) IVPB 250 mls/hr DAILY MADELIN Administration Insulin Aspart 1 vial 09/21/16 11:00 09/23/16 16:34 Novolog Vial Sliding Scale - SQ 2 units ACHS MADELIN Administration Protocol Latanoprost 1 drop 09/21/16 10:00 09/22/16 23:12 Xalatan 0.005% Eye Drops - OU Not Given HS [facility] Methylprednisolone Sodium Succinate 60 mg 09/23/16 18:00 09/23/16 17:10 Solu-Medrol - IVPB 60 mg Q8H-IV MADELIN Administration Sevelamer Carbonate 1,600 mg 09/23/16 17:30 09/23/16 16:35 Renvela - PO 1,600 mg TIDCM MADELIN Administration Home Medications Medication Instructions Recorded Amlodipine Besylate [Norvasc -] 10 mg PO DAILY 12/17/14 Aspirin [Ecotrin] 81 mg PO DAILY 12/17/14 Carvedilol 25 mg PO BID 12/17/14 Glimepiride 4 mg PO BID 12/17/14 Ipratropium/Albuterol Sulfate 14.7 gm IH DAILY 12/17/14 [Combivent Respimat Inhal [place]] Latanoprost 0.005% Eye Drops 0.005 drop OU DAILY 12/17/14 [Xalatan 0.005% Eye Drops -] Salmeterol/Fluticasone [Advair 1 inh IH DAILY 12/17/14 100Mcg/50Mcg -] Sevelamer Carbonate [Renvela -] 800 mg PO TID 12/17/14 Simvastatin [Zocor -] 20 mg PO HS 12/17/14 Sitagliptin Phosphate [Januvia] 25 mg PO DAILY 12/17/14 Tiotropium [place] [Spiriva] 18 mcg IH DAILY 12/17/14 Docusate Sodium [Colace -] 100 mg PO TID 09/21/16 [id number] EXAM#: TYPE/EXAM: RESULT: [id number] RAD/CHEST X-RAY PORTABLE* Single portable chest x-ray. Shortness of breath. No evidence of pneumonia, CHF , pleural effusion or pneumothorax. The heart borderline enlarged. Uncoiled thoracic aorta. No evidence of widening of the superior mediastinum. No bulky hilar adenopathy seen. 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 EKG leads are noted. Impression No evidence of active pulmonary disease. Reported By : Dante Willett MD 09/21/[address] scan of the chest without intravenous contrast Coronal and sagittal reconstruction images were obtained. Compared to prior CT scan of the chest dated 04/27/2016 and prior chest x-ray done earlier on the same date. The cardiac silhouette remains within normal limits in size. Calcification of the coronary arteries are again seen. No enlarged mediastinal or hilar lymph nodes are identified on this noncontrast CT scan of the chest. There are minimal bibasal atelectatic changes, right more than left. No gross pulmonary nodules are identified. There is mild pleural thickening along the posterior chest wall , left more the right. Mild emphysematous changes are present. In included portion of the upper abdomen, multiple bilateral renal cysts are again seen with cortical thinning. Visualized osseous structures appear intact with multilevel mild degenerative disc disease and a prominent Schmorl's node along superior endplate of L1 Impression: No significant interval change or acute lung disease is present. PE: as per resident's note ASSESSMENT AND PLAN: Patient is a 75 year old Gentleman with PMhx of ESRD on HD (MWF), COPD, Hypertension, DM Type 2 who presented from the dialysis unit with difficulty breathing and found to have acute COPD exacerbation. # Acute COPD exacerbation on IV solu medrol 60mg q8 today improving reduced to ,continue Nebs txs , Zithromax. Pulmonary consult appreciated . 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 DVT px: Heparin
[2016-09-23] MEDS: ALBUTEROL SO4 0.083% IH SOL 2.5 MG/3 ML VIAL.NEB. NEB SCH ×2 (18:20→23:33)
[2016-09-23] MEDS: LATANOPROST 0.005% OPHTH SOLN 2.5ML BOTTLE OU SCH (21:59)
[2016-09-23] MEDS: ATORVASTATIN CA 10 MG TABLET (FP) PO SCH (21:59)
[2016-09-23] MEDS ORDERED: TIOTROPIUM BROMIDE 18 MCG/INH (DEVICE W/ 5 CAPSULES) IH SCH (22:00)
[2016-09-23] MEDS: ACLIDINIUM BROMIDE 400 MCG/INH AERO.POWD IH SCH (22:22)
[2016-09-24] MEDS: methylPREDNISolone NA SUCC 125 MG/2 ML VIAL IVPB SCH ×3 (01:36→17:30)
[2016-09-24] MEDS: INSULIN SLIDING SCALE (NOVOLOG) 1 VIAL SQ SCH ×4 (06:23→21:33)
[2016-09-24] MEDS: DOCUSATE SODIUM 100 MG CAPSULE (FP) PO SCH ×3 (06:23→21:32)
[2016-09-24] MEDS: ALBUTEROL SO4 0.083% IH SOL 2.5 MG/3 ML VIAL.NEB. NEB SCH ×4 (06:50→23:26)
[2016-09-24] MEDS: SEVELAMER CARBONATE 800 MG TAB (FP) PO SCH ×3 (08:43→17:30)
[2016-09-24] MEDS ORDERED: PT OWN MED DRAWER 7, Y5N ONE (09:58)
[2016-09-24] MEDS: CARVEDILOL 25 MG TABLET (FP) PO SCH ×2 (10:06→21:32)
[2016-09-24] MEDS: ASPIRIN COATED 81 MG TABLET.EC PO SCH (10:06)
[2016-09-24] MEDS: amLODIPine BESYLATE 10 MG TABLET (FP) PO SCH (10:07)
[2016-09-24] MEDS: HEPARIN NA (PORCINE) 5,000 UNITS/ML 1ML VIAL SQ SCH ×2 (10:07→21:32)
[2016-09-24] MEDS: CINACALCET HCL 30 MG TAB (FP) PO SCH (10:07)
[2016-09-24] MEDS: BUDESONIDE/FORMETEROL FUMARATE 160/4.5 mcg INHALER IH SCH ×2 (10:08→21:33)
[2016-09-24] MEDS: ACLIDINIUM BROMIDE 400 MCG/INH AERO.POWD IH SCH ×2 (10:08→21:34)
[2016-09-24] MEDS: AZITHROMYCIN IVPB 250 ML IVPB SCH (11:03)
--- NOTE | 2016-09-24 12:46 | PN ---
Progress Note (short form) - Note Progress Note: PULMONARY Breathing slowly improving but still with cough, wheezing and shortness of breath. +cough clearing. No fevers or chills. Last Vital Signs Temp Pulse Resp BP Pulse Ox 97.2 F L 94 H 18 118/68 97 09/24/16 06:00 09/24/16 06:00 09/24/16 06:00 09/24/16 06:00 09/23/16 21:00 Gen: NAD at rest Heart: RRR Lung: scattered rhonchi, wheezes Abd: soft, nontender Ext: no edema CBC, BMP 09/23/16 07:30 09/23/16 11:00 Active Medications Acetaminophen (Tylenol -) 650 mg PO Q4H PRN PRN Reason: FEVER OR PAIN Aclidinium [place] (Tudorza -) 1 puff IH BID [facility] Last Admin: 09/24/16 10:08 Dose: 1 puff Albuterol Sulfate (Ventolin 0.083% Nebulizer Soln -) 1 amp NEB QIDR [facility] Last Admin: 09/24/16 06:50 Dose: 1 amp Amlodipine Besylate (Norvasc -) 10 mg PO DAILY [facility] Last Admin: 09/24/16 10:07 Dose: 10 mg Aspirin (Ecotrin -) 81 mg PO DAILY [facility] Last Admin: 09/24/16 10:06 Dose: 81 mg Atorvastatin Calcium (Lipitor -) 10 mg PO HS [facility] Last Admin: 09/23/16 21:59 Dose: 10 mg Benzocaine/Menthol (Cepacol Lozenge -) 1 each MM PRN PRN PRN Reason: SORE THROAT Last Admin: 09/22/16 18:59 Dose: 1 each Budesonide/Formoterol Fumarate (Symbicort 160/4.5mcg -) 2 puff IH BID [facility] Last Admin: 09/24/16 10:08 Dose: 2 puff Carvedilol (Coreg -) 25 mg PO BID [facility] Last Admin: 09/24/16 10:06 Dose: 25 mg Cinacalcet (Sensipar -) 30 mg PO DAILY [facility] Last Admin: 09/24/16 10:07 Dose: 30 mg Docusate Sodium (Colace -) 100 mg PO TID [facility] Last Admin: 09/24/16 06:23 Dose: 100 mg Heparin Sodium (Porcine) (Heparin -) 5,000 unit SQ BID MADELIN Last Admin: 09/24/16 10:07 Dose: 5,000 unit Azithromycin (Zithromax 500mg Ivpb (Pre-Docked)) 250 mls @ 250 mls/hr IVPB DAILY [facility]AD[facility]IN Last Admin: 09/24/16 11:03 Dose: 250 mls/hr Insulin Aspart (Novolog Vial Sliding Scale -) 1 vial SQ ACHS MADELIN PRN Reason: Protocol Last Admin: 09/24/16 11:50 Dose: 8 units Latanoprost (Xalatan 0.005% Eye Drops -) 1 drop OU HS [facility]ADELIN Last Admin: 09/23/16 21:59 Dose: 1 drop Methylprednisolone Sodium Succinate (Solu-Medrol -) 60 mg IVPB Q8H-IV [facility]ADELIN Last Admin: 09/24/16 10:07 Dose: 60 mg Sevelamer Carbonate (Renvela -) 1,600 mg PO TIDCM MADELIN Last Admin: 09/24/16 12:12 Dose: 1,600 mg A/P Acute Hypoxic Respiratory Failure improving Acute COPD Exacerbation Acute Bronchitis ESRD on HD HTN DM Lung Nodule - continue medrol at current dose - inhaled bronchodilators - o2 as needed - HD per renal - continue antibiotics - continued outpt f/u of lung nodule - DVT prophylaxis
--- NOTE | 2016-09-24 13:35 | PN ---
Progress Note (short form) - Note Progress Note: Renal follow up for ESRD on HD Pt [facility] still wheezeing discussed bone infract on humerus with pt, denies any pain there at this time no chest pain s/p dialysis yesterda Vital Signs Temperature 97.2 F L 09/24/16 06:00 Pulse Rate 94 H 09/24/16 06:00 Respiratory Rate 18 09/24/16 06:00 Blood Pressure 118/68 09/24/16 06:00 O2 Sat by Pulse Oximetry (%) 97 09/23/16 21:00 Intake & Output 09/21/16 09/22/16 09/23/16 09/24/16 23:59 23:59 23:59 23:59 Intake Total 250 1330 2460 310 Balance 250 1330 2460 310 Weight 180 lb 4.8 oz Gen: NAD, awake and alert CVS: RRR, no M/R Lungs: Dec BS, no rales + wheeze Abd: soft NT/ND ext: no edema, clubbing or cyanosis Access: Left ARM AVF CBC, BMP 09/23/16 07:30 09/23/16 11:00 Current Medications Acetaminophen (Tylenol -) 650 mg PO Q4H PRN PRN Reason: FEVER OR PAIN Aclidinium [place] (Tudorza -) 1 puff IH BID [facility] Last Admin: 09/24/16 10:08 Dose: 1 puff Albuterol Sulfate (Ventolin 0.083% Nebulizer Soln -) 1 amp NEB QIDR [facility] Last Admin: 09/24/16 06:50 Dose: 1 amp Amlodipine Besylate (Norvasc -) 10 mg PO DAILY [facility] Last Admin: 09/24/16 10:07 Dose: 10 mg Aspirin (Ecotrin -) 81 mg PO DAILY [facility] Last Admin: 09/24/16 10:06 Dose: 81 mg Atorvastatin Calcium (Lipitor -) 10 mg PO HS [facility] Last Admin: 09/23/16 21:59 Dose: 10 mg Benzocaine/Menthol (Cepacol Lozenge -) 1 each MM PRN PRN PRN Reason: SORE THROAT Last Admin: 09/22/16 18:59 Dose: 1 each Budesonide/Formoterol Fumarate (Symbicort 160/4.5mcg -) 2 puff IH BID [facility] Last Admin: 09/24/16 10:08 Dose: 2 puff Carvedilol (Coreg -) 25 mg PO BID [facility] Last Admin: 09/24/16 10:06 Dose: 25 mg Cinacalcet (Sensipar -) 30 mg PO DAILY [facility] Last Admin: 09/24/16 10:07 Dose: 30 mg Docusate Sodium (Colace -) 100 mg PO TID [facility] Last Admin: 09/24/16 06:23 Dose: 100 mg Heparin Sodium (Porcine) (Heparin -) 5,000 unit SQ BID [facility] Last Admin: 09/24/16 10:07 Dose: 5,000 unit Azithromycin (Zithromax 500mg Ivpb (Pre-Docked)) 250 mls @ 250 mls/hr IVPB DAILY [facility] Last Admin: 09/24/16 11:03 Dose: 250 mls/hr Insulin Aspart (Novolog Vial Sliding Scale -) 1 vial SQ ACHS [facility] PRN Reason: Protocol Last Admin: 09/24/16 11:50 Dose: 8 units Latanoprost (Xalatan 0.005% Eye Drops -) 1 drop OU HS [facility] Last Admin: 09/23/16 21:59 Dose: 1 drop Methylprednisolone Sodium Succinate (Solu-Medrol -) 60 mg IVPB Q8H-IV [facility] Last Admin: 09/24/16 10:07 Dose: 60 mg Sevelamer Carbonate (Renvela -) 1,600 mg PO TIDCM [facility] Last Admin: 09/24/16 12:12 Dose: 1,600 mg A/P 75 year old Gentleman with PMhx of ESRD on HD (MWF at [facility]), COPD, Hypertension , DM Type 2 who presented from the dialysis unit with difficulty breathing and found to have acute COPD exacerbation. 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 Check PTH #Renal Osteodystrphy continue Sensipar Increase Renvela to 2 tabs TID wieth meals Trend PHos and CA Thank you Bean Zavala DO
--- NOTE | 2016-09-24 18:46 | PN ---
Physical Exam: SUBJECTIVE: Patient seen and examined Patient is feeling better, no acute distress, breathing better. OBJECTIVE: Vital Signs Temperature 98.5 F 09/24/16 13:36 Pulse Rate 84 09/24/16 13:36 Respiratory Rate 17 09/24/16 13:36 Blood Pressure 112/58 09/24/16 13:36 O2 Sat by Pulse Oximetry (%) 99 09/24/16 09:00 GENERAL: The patient is awake, alert, and fully oriented, in no acute distress. HEAD: Normal with no signs of trauma. EYES: PERRL, extraocular movements intact, sclera anicteric, conjunctiva clear. ENT: Ears normal, oropharynx clear without exudates, moist mucous membranes. NECK: Trachea midline, full range of motion, supple. LUNGS: decreased Breath sounds Bl , GAE BL , positive for wheeze, no crackles, no accessory muscle use. HEART: Regular rate and rhythm, S1, S2 without murmur, rub or gallop. ABDOMEN: Soft, nontender, nondistended, normoactive bowel sounds, no guarding, no rebound, no masses appreciated. EXTREMITIES: 2+ pulses, warm, well-perfused, no edema. NEUROLOGICAL: Cranial nerves II through XII grossly intact. Normal speech. PSYCH: Normal mood, normal affect. SKIN: Warm, dry, normal turgor, no rashes or lesions noted CBCD WBC 6.9 K/mm3 (4.0-10.0) D 09/23/16 07:30 RBC 3.27 M/mm3 (4.00-5.60) L 09/23/16 07:30 Hgb 11.1 GM/dL (11.7-16.9) L 09/23/16 07:30 Hct 32.5 % (35.4-49) L 09/23/16 07:30 MCV 99.4 fl (80-96) H 09/23/16 07:30 MCHC 34.0 g/dl (32.0-35.9) 09/23/16 07:30 RDW 15.9 % (11.9-15.9) 09/23/16 07:30 Plt Count 108 K/MM3 (134-434) L 09/23/16 07:30 MPV 8.8 fl (7.5-11.1) 09/23/16 07:30 CMP Sodium 136 mmol/L (136-145) 09/23/16 07:30 Potassium 4.8 mmol/L (3.5-5.1) 09/23/16 07:30 Chloride 94 mmol/L (98-107) L 09/23/16 07:30 Carbon Dioxide 24 mmol/L (21-32) 09/23/16 07:30 Anion Gap 18 (8-16) H 09/23/16 07:30 BUN 20 mg/dL (7-18) H D 09/23/16 11:00 Creatinine 3.8 mg/dL (0.7-1.3) H 09/23/16 11:00 Creat Clearance w eGFR 4.68 (>60) 09/23/16 07:30 Random Glucose 148 mg/dL (74-106) H 09/23/16 07:30 Calcium 8.3 mg/dL (8.5-10.1) L 09/23/16 07:30 Total Bilirubin 0.5 mg/dL (0.2-1.0) D 09/23/16 07:30 AST 18 U/L (15-37) 09/23/16 07:30 ALT 18 U/L (12-78) 09/23/16 07:30 Alkaline Phosphatase 65 U/L (45-117) 09/23/16 07:30 Total Protein 6.0 g/dl (6.4-8.2) L 09/23/16 07:30 Albumin 3.3 g/dl (3.4-5.0) L 09/23/16 07:30 CARDIAC ENZYMES Creatine Kinase 199 IU/L (39-308) 09/21/16 19:00 Troponin I 0.11 ng/ml (0.00-0.05) H 09/22/16 06:20 Laboratory Results - last 24 hr 09/21/16 09/23/16 09/24/16 14:45 21:53 06:03 POC Glucometer 218 138 Hepatitis C Antibody <0.1 09/24/16 09/24/16 11:47 17:27 POC Glucometer 305 198 Hepatitis C Antibody Active Medications Generic Name Dose Route Start Last Admin Trade Name Freq PRN Reason Stop Dose Admin Acetaminophen 650 mg 09/21/16 09:42 Tylenol - PO Q4H PRN FEVER OR PAIN Aclidinium [place] 1 puff 09/23/16 22:00 09/24/16 10:08 Tudorza - IH 1 puff BID MADELIN Administration Albuterol Sulfate 1 amp 09/23/16 18:00 09/24/16 11:20 Ventolin 0.083% Nebulizer Soln - NEB 1 amp QIDR MADELIN Administration Amlodipine Besylate 10 mg 09/21/16 10:00 09/24/16 10:07 Norvasc - PO 10 mg DAILY MADELIN Administration Aspirin 81 mg 09/21/16 10:00 09/24/16 10:06 Ecotrin - PO 81 mg DAILY MADELIN Administration Atorvastatin Calcium 10 mg 09/21/16 22:00 09/23/16 21:59 Lipitor - PO 10 mg HS MADELIN Administration Benzocaine/Menthol 1 each 09/22/16 18:12 09/22/16 18:59 Cepacol Lozenge - MM 1 each PRN PRN Administration SORE THROAT Budesonide/Formoterol Fumarate 2 puff 09/21/16 22:00 09/24/16 10:08 Symbicort 160/4.5mcg - IH 2 puff BID MADELIN Administration Carvedilol 25 mg 09/21/16 10:00 09/24/16 10:06 Coreg - PO 25 mg BID MADELIN Administration Cinacalcet 30 mg 09/21/16 10:00 09/24/16 10:07 Sensipar - PO 30 mg DAILY MADELIN Administration Docusate Sodium 100 mg 09/21/16 14:00 09/24/16 14:11 Colace - PO 100 mg TID MADELIN Administration Heparin Sodium (Porcine) 5,000 unit 09/21/16 10:00 09/24/16 10:07 Heparin - SQ 5,000 unit BID MADELIN Administration Azithromycin 250 mls @ 250 mls/hr 09/22/16 10:00 09/24/16 11:03 Zithromax 500mg Ivpb (Pre-Docked) IVPB 250 mls/hr DAILY MADELIN Administration Insulin Aspart 1 vial 09/21/16 11:00 09/24/16 17:30 Novolog Vial Sliding Scale - SQ 2 units ACHS MADELIN Administration Protocol Latanoprost 1 drop 09/21/16 10:00 09/23/16 21:59 Xalatan 0.005% Eye Drops - OU 1 drop HS MADELIN Administration Methylprednisolone Sodium Succinate 60 mg 09/23/16 18:00 09/24/16 17:30 Solu-Medrol - IVPB 60 mg Q8H-IV MADELIN Administration Sevelamer Carbonate 1,600 mg 09/23/16 17:30 09/24/16 17:30 Renvela - PO 1,600 mg TIDCM MADELIN Administration [id number] EXAM#: TYPE/EXAM: RESULT: [id number] RAD/CHEST X-RAY PORTABLE* Single portable chest x-ray. Shortness of breath. No evidence of pneumonia, CHF , pleural effusion or pneumothorax. The heart borderline enlarged. Uncoiled thoracic aorta. No evidence of widening of the superior mediastinum. No bulky hilar adenopathy seen. 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 EKG leads are noted. Impression No evidence of active pulmonary disease. Reported By : Dante Willett MD 09/21/[address] scan of the chest without intravenous contrast Coronal and sagittal reconstruction images were obtained. Compared to prior CT scan of the chest dated 04/27/2016 and prior chest x-ray done earlier on the same date. The cardiac silhouette remains within normal limits in size. Calcification of the coronary arteries are again seen. No enlarged mediastinal or hilar lymph nodes are identified on this noncontrast CT scan of the chest. There are minimal bibasal atelectatic changes, right more than left. No gross pulmonary nodules are identified. There is mild pleural thickening along the posterior chest wall , left more the right. Mild emphysematous changes are present. In included portion of the upper abdomen, multiple bilateral renal cysts are again seen with cortical thinning. Visualized osseous structures appear intact with multilevel mild degenerative disc disease and a prominent Schmorl's node along superior endplate of L1 Impression: No significant interval change or acute lung disease is present. PE: as per resident's note ASSESSMENT AND PLAN: Patient is a 75 year old Gentleman with PMhx of ESRD on HD (MWF), COPD, Hypertension, DM Type 2 who presented from the dialysis unit with difficulty breathing and found to have acute COPD exacerbation. # Acute COPD exacerbation on IV solu medrol 60mg q8 today reduced to ,continue Nebs txs , Zithromax. Pulmonary consult appreciated . 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 will order bone scan to r/o bone infarct Visit type - Emergency Visit Emergency Visit: Yes ED Registration Date: 09/21/16 Care time: The patient presented to the Emergency Department on the above date and was hospitalized for further evaluation of their emergent condition. - New Patient This patient is new to me today: No - Critical Care Critical Care patient: No
[2016-09-24] MEDS: ATORVASTATIN CA 10 MG TABLET (FP) PO SCH (21:33)
[2016-09-24] MEDS: LATANOPROST 0.005% OPHTH SOLN 2.5ML BOTTLE OU SCH (21:34)
[2016-09-25] MEDS: methylPREDNISolone NA SUCC 125 MG/2 ML VIAL IVPB SCH ×2 (01:02→09:32)
[2016-09-25] MEDS: DOCUSATE SODIUM 100 MG CAPSULE (FP) PO SCH ×3 (06:14→21:58)
[2016-09-25] MEDS: INSULIN SLIDING SCALE (NOVOLOG) 1 VIAL SQ SCH ×4 (06:15→21:57)
[2016-09-25] MEDS: ALBUTEROL SO4 0.083% IH SOL 2.5 MG/3 ML VIAL.NEB. NEB SCH ×3 (06:56→18:47)
[2016-09-25] MEDS: SEVELAMER CARBONATE 800 MG TAB (FP) PO SCH ×3 (08:43→17:19)
[2016-09-25] MEDS ORDERED: PT OWN MED DRAWER 7, Y5N ONE (09:25)
[2016-09-25 09:26] LABS: CALCIUM 7.8 mg/dL (8.5-10.1)
[2016-09-25] MEDS: CARVEDILOL 25 MG TABLET (FP) PO SCH ×2 (09:31→21:58)
[2016-09-25] MEDS: ASPIRIN COATED 81 MG TABLET.EC PO SCH (09:31)
[2016-09-25] MEDS: amLODIPine BESYLATE 10 MG TABLET (FP) PO SCH (09:31)
[2016-09-25] MEDS: HEPARIN NA (PORCINE) 5,000 UNITS/ML 1ML VIAL SQ SCH ×2 (09:32→21:57)
[2016-09-25] MEDS: ACLIDINIUM BROMIDE 400 MCG/INH AERO.POWD IH SCH ×2 (09:32→21:59)
[2016-09-25] MEDS: CINACALCET HCL 30 MG TAB (FP) PO SCH (09:32)
[2016-09-25] MEDS: BUDESONIDE/FORMETEROL FUMARATE 160/4.5 mcg INHALER IH SCH ×2 (09:32→21:59)
[2016-09-25 09:36] LABS: COCKROFT - GAULT 7.23
[2016-09-25 09:45] LABS: CREATININE 10.2 mg/dL (0.7-1.3)
[2016-09-25] MEDS: AZITHROMYCIN IVPB 250 ML IVPB SCH (10:39)
--- NOTE | 2016-09-25 11:55 | PN ---
Physical Exam: SUBJECTIVE: Patient seen and examined at bedside. No overnight events. No new complaints. Breathing has improved. Feels ok. Breathing on RA. Denies CP,DANIELS, palpitations, SOB, abd. pain, N/V. OBJECTIVE: Vital Signs Period Temp Pulse Resp BP Sys/Mota Pulse Ox Last 24 Hr 97.6 F-98.5 F 70-84 16-20 110-119/58-66 96 GENERAL: AAOx3 NAD HEAD: NC/AT EYES: PERRL, extraocular movements intact, sclera anicteric, conjunctiva clear. No ptosis. ENT: moist mucous membranes. NECK: supple, no jvd LUNGS: decreased breath sounds bilat. Scattered rhonchi, minimal expiratory wheezing. HEART: Regular rate and rhythm, S1, S2 without murmur, rub or gallop. ABDOMEN: Soft, NT, ND, BS(+) EXTREMITIES: 2+ pulses, warm, well-perfused, no edema. NEUROLOGICAL: Cranial nerves II through XII grossly intact. Normal speech, gait not observed. PSYCH: Normal mood, normal affect. SKIN: Warm, dry, normal turgor, no rashes or lesions noted Laboratory Results - last 24 hr 09/21/16 09/24/16 09/24/16 14:45 11:47 17:27 Sodium Potassium Chloride Carbon Dioxide Anion Gap BUN Creatinine POC Glucometer 305 198 Random Glucose Calcium Hepatitis C Antibody <0.1 09/24/16 09/25/16 09/25/16 21:29 05:23 07:15 Sodium 132 L Potassium 4.5 Chloride 88 L Carbon Dioxide 25 Anion Gap 19 H BUN 86 H D Creatinine 10.2 H* POC Glucometer 133 188 Random Glucose 139 H Calcium 7.8 L Hepatitis C Antibody Active Medications Generic Name Dose Route Start Last Admin Trade Name Freq PRN Reason Stop Dose Admin Acetaminophen 650 mg 09/21/16 09:42 Tylenol - PO Q4H PRN FEVER OR PAIN Aclidinium [place] 1 puff 09/23/16 22:00 09/25/16 09:32 Tudorza - IH 1 puff BID MADELIN Administration Albuterol Sulfate 1 amp 09/23/16 18:00 09/25/16 06:56 Ventolin 0.083% Nebulizer Soln - NEB 1 amp QIDR MADELIN Administration Amlodipine Besylate 10 mg 09/21/16 10:00 09/25/16 09:31 Norvasc - PO 10 mg DAILY MADELIN Administration Aspirin 81 mg 09/21/16 10:00 09/25/16 09:31 Ecotrin - PO 81 mg DAILY MADELIN Administration Atorvastatin Calcium 10 mg 09/21/16 22:00 09/24/16 21:33 Lipitor - PO 10 mg HS MADELIN Administration Benzocaine/Menthol 1 each 09/22/16 18:12 09/22/16 18:59 Cepacol Lozenge - MM 1 each PRN PRN Administration SORE THROAT Budesonide/Formoterol Fumarate 2 puff 09/21/16 22:00 09/25/16 09:32 Symbicort 160/4.5mcg - IH 2 puff BID MADELIN Administration Carvedilol 25 mg 09/21/16 10:00 09/25/16 09:31 Coreg - PO 25 mg BID MADELIN Administration Cinacalcet 30 mg 09/21/16 10:00 09/25/16 09:32 Sensipar - PO 30 mg DAILY MADELIN Administration Docusate Sodium 100 mg 09/21/16 14:00 09/25/16 06:14 Colace - PO 100 mg TID MADELIN Administration Heparin Sodium (Porcine) 5,000 unit 09/21/16 10:00 09/25/16 09:32 Heparin - SQ 5,000 unit BID MADELIN Administration Insulin Aspart 1 vial 09/21/16 11:00 09/25/16 06:15 Novolog Vial Sliding Scale - SQ 2 units ACHS MADELIN Administration Protocol Latanoprost 1 drop 09/21/16 10:00 09/24/16 21:34 Xalatan 0.005% Eye Drops - OU 1 drop HS MADELIN Administration Methylprednisolone Sodium Succinate 60 mg 09/23/16 18:00 09/25/16 09:32 Solu-Medrol - IVPB 60 mg Q8H-IV MADELIN Administration Sevelamer Carbonate 1,600 mg 09/23/16 17:30 09/25/16 08:43 Renvela - PO 1,600 mg TIDCM MADELIN Administration ASSESSMENT/PLAN: Problem List - Problems (1) COPD exacerbation Assessment/Plan: * Now breathing comfortably on room air. * Methylprednisolone reduced to 40 mg IVPB to Q8H * Albuterol Sulfate 1 amp NEB Q4H PRN * Albuterol/Ipratropium 1 amp NEB QIDR * Budesonide/Formoterol Fumarate 2 puff IH BID * completed 4 day course of Azithromycin (Zithromax 500mg Ivpb 250 mls @ 250 mls/hr IVPB DAILY * Tiotropium Bromide1 puff IH HS (2) Bone infarct Assessment/Plan: * Unclear etiology possible due to chronic steroid use * Will obtain bone scan to evaluate for mulitple sites of infarcts. (3) Diabetes Assessment/Plan: * ADA diet * ISS ACHS * BGM ACHS (4) ESRD (end stage renal disease) on dialysis Assessment/Plan: * Seen by nephrology Dr. Zavala * Due for dialysis tomorrow. (5) HTN (hypertension) Assessment/Plan: * BP well controlled will continue home meds: * Amlodipine Besylate (Norvasc -) 10 mg PO DAILY MADELIN * Carvedilol (Coreg -) 25 mg PO BID MADELIN (6) DVT prophylaxis Assessment/Plan: * Heparin 5000units BID SQ * Visit type - Emergency Visit Emergency Visit: Yes ED Registration Date: 09/21/16 Care time: The patient presented to the Emergency Department on the above date and was hospitalized for further evaluation of their emergent condition. - New Patient This patient is new to me today: No - Critical Care Critical Care patient: No
--- NOTE | 2016-09-25 11:58 | PN ---
Teaching Attending Note Name of Resident: Theodore Miner ATTENDING PHYSICIAN STATEMENT I saw and evaluated the patient. I reviewed the resident's note and discussed the case with the resident. I agree with the resident's findings and plan as documented. SUBJECTIVE: Comfortable feeling better with no acute distress. OBJECTIVE: Vital Signs Temperature 97.6 F 09/25/16 06:00 Pulse Rate 80 09/25/16 06:00 Respiratory Rate 20 09/25/16 06:00 Blood Pressure 117/60 09/25/16 06:00 O2 Sat by Pulse Oximetry (%) 96 09/24/16 20:40 CBCD WBC 6.9 K/mm3 (4.0-10.0) D 09/23/16 07:30 RBC 3.27 M/mm3 (4.00-5.60) L 09/23/16 07:30 Hgb 11.1 GM/dL (11.7-16.9) L 09/23/16 07:30 Hct 32.5 % (35.4-49) L 09/23/16 07:30 MCV 99.4 fl (80-96) H 09/23/16 07:30 MCHC 34.0 g/dl (32.0-35.9) 09/23/16 07:30 RDW 15.9 % (11.9-15.9) 09/23/16 07:30 Plt Count 108 K/MM3 (134-434) L 09/23/16 07:30 MPV 8.8 fl (7.5-11.1) 09/23/16 07:30 CMP Sodium 132 mmol/L (136-145) L 09/25/16 07:15 Potassium 4.5 mmol/L (3.5-5.1) 09/25/16 07:15 Chloride 88 mmol/L (98-107) L 09/25/16 07:15 Carbon Dioxide 25 mmol/L (21-32) 09/25/16 07:15 Anion Gap 19 (8-16) H 09/25/16 07:15 BUN 86 mg/dL (7-18) H D 09/25/16 07:15 Creatinine 10.2 mg/dL (0.7-1.3) H* 09/25/16 07:15 Creat Clearance w eGFR 4.68 (>60) 09/23/16 07:30 Random Glucose 139 mg/dL (74-106) H 09/25/16 07:15 Calcium 7.8 mg/dL (8.5-10.1) L 09/25/16 07:15 Total Bilirubin 0.5 mg/dL (0.2-1.0) D 09/23/16 07:30 AST 18 U/L (15-37) 09/23/16 07:30 ALT 18 U/L (12-78) 09/23/16 07:30 Alkaline Phosphatase 65 U/L (45-117) 09/23/16 07:30 Total Protein 6.0 g/dl (6.4-8.2) L 09/23/16 07:30 Albumin 3.3 g/dl (3.4-5.0) L 09/23/16 07:30 CARDIAC ENZYMES Creatine Kinase 199 IU/L (39-308) 09/21/16 19:00 Troponin I 0.11 ng/ml (0.00-0.05) H 09/22/16 06:20 Current Medications Generic Name Dose Route Start Last Admin Trade Name Freq PRN Reason Stop Dose Admin Acetaminophen 650 mg 09/21/16 09:42 Tylenol - PO Q4H PRN FEVER OR PAIN Aclidinium [place] 1 puff 09/23/16 22:00 09/25/16 09:32 Tudorza - IH 1 puff BID MADELIN Administration Albuterol Sulfate 1 amp 09/23/16 18:00 09/25/16 06:56 Ventolin 0.083% Nebulizer Soln - NEB 1 amp QIDR MADELIN Administration Amlodipine Besylate 10 mg 09/21/16 10:00 09/25/16 09:31 Norvasc - PO 10 mg DAILY MADELIN Administration Aspirin 81 mg 09/21/16 10:00 09/25/16 09:31 Ecotrin - PO 81 mg DAILY MADELIN Administration Atorvastatin Calcium 10 mg 09/21/16 22:00 09/24/16 21:33 Lipitor - PO 10 mg HS MADELIN Administration Benzocaine/Menthol 1 each 09/22/16 18:12 09/22/16 18:59 Cepacol Lozenge - MM 1 each PRN PRN Administration SORE THROAT Budesonide/Formoterol Fumarate 2 puff 09/21/16 22:00 09/25/16 09:32 Symbicort 160/4.5mcg - IH 2 puff BID MADELIN Administration Carvedilol 25 mg 09/21/16 10:00 09/25/16 09:31 Coreg - PO 25 mg BID MADELIN Administration Cinacalcet 30 mg 09/21/16 10:00 09/25/16 09:32 Sensipar - PO 30 mg DAILY MADELIN Administration Docusate Sodium 100 mg 09/21/16 14:00 09/25/16 06:14 Colace - PO 100 mg TID MADELIN Administration Heparin Sodium (Porcine) 5,000 unit 09/21/16 10:00 09/25/16 09:32 Heparin - SQ 5,000 unit BID MADELIN Administration Insulin Aspart 1 vial 09/21/16 11:00 09/25/16 06:15 Novolog Vial Sliding Scale - SQ 2 units ACHS MADELIN Administration Protocol Latanoprost 1 drop 09/21/16 10:00 09/24/16 21:34 Xalatan 0.005% Eye Drops - OU 1 drop HS MADELIN Administration Methylprednisolone Sodium Succinate 60 mg 09/23/16 18:00 09/25/16 09:32 Solu-Medrol - IVPB 60 mg Q8H-IV MADELIN Administration Sevelamer Carbonate 1,600 mg 09/23/16 17:30 09/25/16 08:43 Renvela - PO 1,600 mg TIDCM MADELIN Administration Home Medications Medication Instructions Recorded Amlodipine Besylate [Norvasc -] 10 mg PO DAILY 12/17/14 Aspirin [Ecotrin] 81 mg PO DAILY 12/17/14 Carvedilol 25 mg PO BID 12/17/14 Glimepiride 4 mg PO BID 12/17/14 Ipratropium/Albuterol Sulfate 14.7 gm IH DAILY 12/17/14 [Combivent Respimat Inhal [place]] Latanoprost 0.005% Eye Drops 0.005 drop OU DAILY 12/17/14 [Xalatan 0.005% Eye Drops -] Salmeterol/Fluticasone [Advair 1 inh IH DAILY 12/17/14 100Mcg/50Mcg -] Sevelamer Carbonate [Renvela -] 800 mg PO TID 12/17/14 Simvastatin [Zocor -] 20 mg PO HS 12/17/14 Sitagliptin Phosphate [Januvia] 25 mg PO DAILY 12/17/14 Tiotropium [place] [Spiriva] 18 mcg IH DAILY 12/17/14 Docusate Sodium [Colace -] 100 mg PO TID 09/21/16 PE: as per resident's note ASSESSMENT AND PLAN: Patient is a 75 year old Gentleman with PMhx of ESRD on HD ([facility]), COPD, Hypertension, DM Type 2 who presented from the dialysis unit with difficulty breathing and found to have acute COPD exacerbation. # Acute COPD exacerbation on IV solu medrol 60mg q8 reduced to 40mg Iv today will change to po in am. ,continue Nebs txs , Zithromax. Pulmonary consult appreciated . 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 Patient is going for Bone scan in am #ESRD on HD ([facility]) Dr Zavala on the case, On HD today ; continue Sensipar, Renvela, check phos and calcium level # Hx of DM continue meds # Hx of Cataract continue Xalatan # Hx of HTN continue meds. will order bone scan to r/o bone infarct
[2016-09-25] MEDS ORDERED: INSULIN (NOVOLOG) ASPART 100 UNITS/ML 10ML VIAL ONE ×2 (12:00→16:24)
--- NOTE | 2016-09-25 12:21 | PN ---
Progress Note (short form) - Note Progress Note: PULMONARY Breathing slowly improving but still with cough, wheezing and shortness of breath. +cough clearing. No fevers or chills. Last Vital Signs Temp Pulse Resp BP Pulse Ox 97.6 F 80 20 117/60 96 09/25/16 06:00 09/25/16 06:00 09/25/16 06:00 09/25/16 06:00 09/24/16 20:40 Gen: NAD at rest Heart: RRR Lung: scattered rhonchi, wheezes, better air entry Abd: soft, nontender Ext: no edema CBC, BMP 09/23/16 07:30 09/25/16 07:15 Active Medications Acetaminophen (Tylenol -) 650 mg PO Q4H PRN PRN Reason: FEVER OR PAIN Aclidinium [place] (Tudorza -) 1 puff IH BID [facility] Last Admin: 09/25/16 09:32 Dose: 1 puff Albuterol Sulfate (Ventolin 0.083% Nebulizer Soln -) 1 amp NEB QIDR [facility] Last Admin: 09/25/16 06:56 Dose: 1 amp Amlodipine Besylate (Norvasc -) 10 mg PO DAILY [facility] Last Admin: 09/25/16 09:31 Dose: 10 mg Aspirin (Ecotrin -) 81 mg PO DAILY [facility] Last Admin: 09/25/16 09:31 Dose: 81 mg Atorvastatin Calcium (Lipitor -) 10 mg PO HS [facility] Last Admin: 09/24/16 21:33 Dose: 10 mg Benzocaine/Menthol (Cepacol Lozenge -) 1 each MM PRN PRN PRN Reason: SORE THROAT Last Admin: 09/22/16 18:59 Dose: 1 each Budesonide/Formoterol Fumarate (Symbicort 160/4.5mcg -) 2 puff IH BID [facility] Last Admin: 09/25/16 09:32 Dose: 2 puff Carvedilol (Coreg -) 25 mg PO BID [facility] Last Admin: 09/25/16 09:31 Dose: 25 mg Cinacalcet (Sensipar -) 30 mg PO DAILY [facility] Last Admin: 09/25/16 09:32 Dose: 30 mg Docusate Sodium (Colace -) 100 mg PO TID [facility] Last Admin: 09/25/16 06:14 Dose: 100 mg Heparin Sodium (Porcine) (Heparin -) 5,000 unit SQ BID MADELIN Last Admin: 09/25/16 09:32 Dose: 5,000 unit Insulin Aspart (Novolog Vial Sliding Scale -) 1 vial SQ ACHS [facility] PRN Reason: Protocol Last Admin: 09/25/16 12:02 Dose: 4 units Latanoprost (Xalatan 0.005% Eye Drops -) 1 drop OU HS [facility] Last Admin: 09/24/16 21:34 Dose: 1 drop Methylprednisolone Sodium Succinate (Solu-Medrol -) 60 mg IVPB Q8H-IV [facility] Last Admin: 09/25/16 09:32 Dose: 60 mg Sevelamer Carbonate (Renvela -) 1,600 mg PO TIDCM [facility] Last Admin: 09/25/16 11:55 Dose: 1,600 mg A/P Acute Hypoxic Respiratory Failure improving Acute COPD Exacerbation Acute Bronchitis ESRD on HD HTN DM Lung Nodule - can decrease medrol to 40mg q8h - inhaled bronchodilators - o2 as needed - HD per renal - continue antibiotics - continued outpt f/u of lung nodule - DVT prophylaxis
[2016-09-25] MEDS ORDERED: SIMETHICONE 80 MG TAB.CHEW (FP) PO PRN (16:22)
[2016-09-25] MEDS: methylPREDNISolone NA SUCC 40 MG/1 ML VIAL IVPB SCH (17:18)
[2016-09-25] MEDS: ATORVASTATIN CA 10 MG TABLET (FP) PO SCH (21:58)
[2016-09-25] MEDS: LATANOPROST 0.005% OPHTH SOLN 2.5ML BOTTLE OU SCH (21:58)
[2016-09-26] MEDS: ALBUTEROL SO4 0.083% IH SOL 2.5 MG/3 ML VIAL.NEB. NEB SCH ×4 (00:25→18:35)
[2016-09-26] MEDS: methylPREDNISolone NA SUCC 40 MG/1 ML VIAL IVPB SCH ×2 (02:18→10:00)
[2016-09-26] MEDS: DOCUSATE SODIUM 100 MG CAPSULE (FP) PO SCH ×2 (06:11→16:17)
[2016-09-26] MEDS: INSULIN SLIDING SCALE (NOVOLOG) 1 VIAL SQ SCH ×3 (06:15→18:48)
[2016-09-26] MEDS: SEVELAMER CARBONATE 800 MG TAB (FP) PO SCH ×3 (09:27→18:48)
[2016-09-26] MEDS: ACLIDINIUM BROMIDE 400 MCG/INH AERO.POWD IH SCH (10:00)
[2016-09-26] MEDS: BUDESONIDE/FORMETEROL FUMARATE 160/4.5 mcg INHALER IH SCH (10:00)
[2016-09-26 10:09] LABS: HEP B SURFACE AB Reactive (.)
--- NOTE | 2016-09-26 11:19 | PN ---
Physical Exam: SUBJECTIVE: Patient seen and examined. Patient feels much better. states breathing has improved, cough has decreased, congestion has decreased. on auscultation b/l wheezing present but much less than before. on 2 L nc OBJECTIVE: Vital Signs Period Temp Pulse Resp BP Sys/Mota Pulse Ox Last 24 Hr 97.0 F-97.9 F 76-87 18-19 100-133/55-79 95 GENERAL: Awake, alert, and fully oriented, EARS, NOSE, THROAT: oropharynx clear without exudates. NECK: Normal range of motion, supple without lymphadenopathy, JVD, LUNGS: b/l air entry improved, b/l wheezing decreased HEART:s1s2 normal ABDOMEN: Soft, nontender, not distended, normoactive bowel sounds, UPPER EXTREMITIES: 2+ pulses, warm, well-perfused. . LOWER EXTREMITIES: warm, . No calf tenderness. No peripheral edema. Laboratory Results - last 24 hr 09/21/16 09/25/16 09/25/16 14:45 12:00 17:14 POC Glucometer 238 138 Hep A IgM Ab Confirm Negative Hepatitis A Ab Total Positive H Hep Bs Antigen Negative Hep Bs Antibody Reactive Hep B Core Total Ab Negative 09/25/16 09/25/16 09/26/16 21:54 22:01 06:12 POC Glucometer 209 117 173 Hep A IgM Ab Confirm Hepatitis A Ab Total Hep Bs Antigen Hep Bs Antibody Hep B Core Total Ab Active Medications Generic Name Dose Route Start Last Admin Trade Name Freq PRN Reason Stop Dose Admin Acetaminophen 650 mg 09/21/16 09:42 Tylenol - PO Q4H PRN FEVER OR PAIN Aclidinium [place] 1 puff 09/23/16 22:00 09/25/16 21:59 Tudorza - IH 1 puff BID MADELIN Administration Albuterol Sulfate 1 amp 09/23/16 18:00 09/26/16 06:50 Ventolin 0.083% Nebulizer Soln - NEB 1 amp QIDR MADELIN Administration Amlodipine Besylate 10 mg 09/21/16 10:00 09/25/16 09:31 Norvasc - PO 10 mg DAILY MADELIN Administration Aspirin 81 mg 09/21/16 10:00 09/25/16 09:31 Ecotrin - PO 81 mg DAILY MADELIN Administration Atorvastatin Calcium 10 mg 09/21/16 22:00 09/25/16 21:58 Lipitor - PO 10 mg HS MADELIN Administration Benzocaine/Menthol 1 each 09/22/16 18:12 09/22/16 18:59 Cepacol Lozenge - MM 1 each PRN PRN Administration SORE THROAT Budesonide/Formoterol Fumarate 2 puff 09/21/16 22:00 09/25/16 21:59 Symbicort 160/4.5mcg - IH 2 puff BID MADELIN Administration Carvedilol 25 mg 09/21/16 10:00 09/25/16 21:58 Coreg - PO 25 mg BID MADELIN Administration Cinacalcet 30 mg 09/21/16 10:00 09/25/16 09:32 Sensipar - PO 30 mg DAILY MADELIN Administration Docusate Sodium 100 mg 09/21/16 14:00 09/26/16 06:11 Colace - PO 100 mg TID MADELIN Administration Heparin Sodium (Porcine) 5,000 unit 09/21/16 10:00 09/25/16 21:57 Heparin - SQ 5,000 unit BID MADELIN Administration Insulin Aspart 1 vial 09/21/16 11:00 09/26/16 06:15 Novolog Vial Sliding Scale - SQ 2 units ACHS MADELIN Administration Protocol Latanoprost 1 drop 09/21/16 10:00 09/25/16 21:58 Xalatan 0.005% Eye Drops - OU 1 drop HS MADELIN Administration Methylprednisolone Sodium Succinate 40 mg 09/25/16 18:00 09/26/16 02:18 Solu-Medrol - IVPB 40 mg Q8H-IV MADELIN Administration Sevelamer Carbonate 1,600 mg 09/23/16 17:30 09/26/16 09:27 Renvela - PO 1,600 mg TIDCM MADELIN Administration Simethicone 80 mg 09/25/16 16:22 Mylicon - PO QID PRN GAS Microbiology CBCD WBC 6.9 K/mm3 (4.0-10.0) D 09/23/16 07:30 RBC 3.27 M/mm3 (4.00-5.60) L 09/23/16 07:30 Hgb 11.1 GM/dL (11.7-16.9) L 09/23/16 07:30 Hct 32.5 % (35.4-49) L 09/23/16 07:30 MCV 99.4 fl (80-96) H 09/23/16 07:30 MCHC 34.0 g/dl (32.0-35.9) 09/23/16 07:30 RDW 15.9 % (11.9-15.9) 09/23/16 07:30 Plt Count 108 K/MM3 (134-434) L 09/23/16 07:30 MPV 8.8 fl (7.5-11.1) 09/23/16 07:30 CMP Sodium 132 mmol/L (136-145) L 09/25/16 07:15 Potassium 4.5 mmol/L (3.5-5.1) 09/25/16 07:15 Chloride 88 mmol/L (98-107) L 09/25/16 07:15 Carbon Dioxide 25 mmol/L (21-32) 09/25/16 07:15 Anion Gap 19 (8-16) H 09/25/16 07:15 BUN 86 mg/dL (7-18) H D 09/25/16 07:15 Creatinine 10.2 mg/dL (0.7-1.3) H* 09/25/16 07:15 Creat Clearance w eGFR 4.68 (>60) 09/23/16 07:30 Random Glucose 139 mg/dL (74-106) H 09/25/16 07:15 Calcium 7.8 mg/dL (8.5-10.1) L 09/25/16 07:15 Total Bilirubin 0.5 mg/dL (0.2-1.0) D 09/23/16 07:30 AST 18 U/L (15-37) 09/23/16 07:30 ALT 18 U/L (12-78) 09/23/16 07:30 Alkaline Phosphatase 65 U/L (45-117) 09/23/16 07:30 Total Protein 6.0 g/dl (6.4-8.2) L 09/23/16 07:30 Albumin 3.3 g/dl (3.4-5.0) L 09/23/16 07:30 CARDIAC ENZYMES Creatine Kinase 199 IU/L (39-308) 09/21/16 19:00 Troponin I 0.11 ng/ml (0.00-0.05) H 09/22/16 06:20 09/22/16 09:15 Sputum - Expectorated Gram Stain - Final 09/22/16 09:15 Sputum - Expectorated Sputum Culture - Final Moraxella (Bran.) Catarrhalis 09/22/16 09:15 Nasopharyngeal Swab Influenza Types A,B Antigen (GRACIE) - Final 09/22/16 09:15 Nasopharyngeal Swab - Final ASSESSMENT/PLAN: # Acute Hypoxic Respiratory Failure improving # acute COPD exacerbation # acute bronchitic s # ESRD on HD # h/o Hypertension # h/o DM # hyponatremia # hyperkalemia # proximal humerus infarct Plan Taper steroid 40mg bid iv continue albuterol neb and spiriva symbicort bid oxygen prn keep spo2> 90 to avoid v/q mis match monitor and control BP get lipid profile correct electrolyte consider ortho consult HD as per nephrology dvt prophylaxis: on heparin Visit type - Emergency Visit Emergency Visit: Yes ED Registration Date: 09/21/16 Care time: The patient presented to the Emergency Department on the above date and was hospitalized for further evaluation of their emergent condition. - New Patient This patient is new to me today: No - Critical Care Critical Care patient: No
[2016-09-26 11:33] LABS: BASOPHIL 0.1 % (0-2.0); MCHC 33.4 g/dl (32.0-35.9); MEAN CELL VOLUME 98.8 fl (80-96); MEAN PLT VOLUME 8.4 fl (7.5-11.1); NEUTROPHILS 90.3 % (42.8-82.8); PLATELET COUNT 122 K/MM3 (134-434); RDW 15.7 % (11.9-15.9); WHITE BLOOD COUNT 7.2 K/mm3 (4.0-10.0)
[2016-09-26 11:46] LABS: BILIRUBIN,TOTAL 0.5 mg/dL (0.2-1.0); CALCIUM 7.6 mg/dL (8.5-10.1); COCKROFT - GAULT 6.25
[2016-09-26 11:52] LABS: TOT PROT 5.4 g/dl (6.4-8.2)
--- NOTE | 2016-09-26 11:59 | PN ---
Progress Note (short form) - Note Progress Note: Renal follow up for ESRD on HD Pt seen and examined at the [facility] feels better for dialysis today Vital Signs Temperature 97.7 F 09/26/16 06:00 Pulse Rate 76 09/26/16 06:00 Respiratory Rate 18 09/26/16 06:00 Blood Pressure 133/79 09/26/16 06:00 O2 Sat by Pulse Oximetry (%) 95 09/25/16 21:00 Intake & Output 09/23/16 09/24/16 09/25/16 09/26/16 23:59 23:59 23:59 23:59 Intake Total 2460 1160 1510 170 Balance 2460 1160 1510 170 Gen: NAD, awake and alert CVS: RRR, no M/R Lungs: Dec BS, no rales + wheeze Abd: soft NT/ND ext: no edema, clubbing or cyanosis Access: Left ARM AVF CBC, BMP 09/26/16 11:09 09/26/16 11:09 Laboratory Tests 09/26/16 09/26/16 11:09 11:09 Calcium 7.6 L Phosphorus Pending Albumin 3.0 L Current Medications Acetaminophen (Tylenol -) 650 mg PO Q4H PRN PRN Reason: FEVER OR PAIN Aclidinium [place] (Tudorza -) 1 puff IH BID [facility] Last Admin: 09/25/16 21:59 Dose: 1 puff Albuterol Sulfate (Ventolin 0.083% Nebulizer Soln -) 1 amp NEB QIDR [facility] Last Admin: 09/26/16 06:50 Dose: 1 amp Amlodipine Besylate (Norvasc -) 10 mg PO DAILY [facility] Last Admin: 09/25/16 09:31 Dose: 10 mg Aspirin (Ecotrin -) 81 mg PO DAILY [facility] Last Admin: 09/25/16 09:31 Dose: 81 mg Atorvastatin Calcium (Lipitor -) 10 mg PO HS [facility] Last Admin: 09/25/16 21:58 Dose: 10 mg Benzocaine/Menthol (Cepacol Lozenge -) 1 each MM PRN PRN PRN Reason: SORE THROAT Last Admin: 09/22/16 18:59 Dose: 1 each Budesonide/Formoterol Fumarate (Symbicort 160/4.5mcg -) 2 puff IH BID [facility] Last Admin: 09/25/16 21:59 Dose: 2 puff Carvedilol (Coreg -) 25 mg PO BID [facility] Last Admin: 09/25/16 21:58 Dose: 25 mg Cinacalcet (Sensipar -) 30 mg PO DAILY [facility] Last Admin: 09/25/16 09:32 Dose: 30 mg Docusate Sodium (Colace -) 100 mg PO TID [facility] Last Admin: 09/26/16 06:11 Dose: 100 mg Heparin Sodium (Porcine) (Heparin -) 5,000 unit SQ BID [facility] Last Admin: 09/25/16 21:57 Dose: 5,000 unit Insulin Aspart (Novolog Vial Sliding Scale -) 1 vial SQ ACHS [facility] PRN Reason: Protocol Last Admin: 09/26/16 06:15 Dose: 2 units Latanoprost (Xalatan 0.005% Eye Drops -) 1 drop OU HS [facility] Last Admin: 09/25/16 21:58 Dose: 1 drop Methylprednisolone Sodium Succinate (Solu-Medrol -) 40 mg IVPB Q8H-IV [facility] Last Admin: 09/26/16 02:18 Dose: 40 mg Sevelamer Carbonate (Renvela -) 1,600 mg PO TIDCM [facility] Last Admin: 09/26/16 09:27 Dose: 1,600 mg Simethicone (Mylicon -) 80 mg PO QID PRN PRN Reason: GAS A/P 75 year old Gentleman with PMhx of ESRD on HD (MWF at [facility]), COPD, Hypertension , DM Type 2 who presented from the dialysis unit with difficulty breathing and found to have acute COPD exacerbation. #COPD exacerbation Taper steroids as per pulmonary #ESRD on HD for dialysis today with goal UF of 2.5L as tolerated #Bone Infarction seen on CXR for MRI as per primary team #Renal Osteodystrphy continue Sensipar continue Renvela PTH pending Thank you Bean Zavala DO
[2016-09-26 12:10] LABS: CREATININE 11.8 mg/dL (0.7-1.3)
--- NOTE | 2016-09-26 12:49 | PN ---
Teaching Attending Note Name of Resident: Edmund Webber ATTENDING PHYSICIAN STATEMENT I saw and evaluated the patient. I reviewed the resident's note and discussed the case with the resident. I agree with the resident's findings and plan as documented. SUBJECTIVE: Breathing feels better overall. Still with some congested cough. Intake & Output 09/23/16 09/24/16 09/25/16 09/26/16 23:59 23:59 23:59 23:59 Intake Total 2460 1160 1510 290 Balance 2460 1160 1510 290 Last Vital Signs Temp Pulse Resp BP Pulse Ox 97.7 F 76 18 133/79 95 09/26/16 06:00 09/26/16 06:00 09/26/16 06:00 09/26/16 06:00 09/25/16 21:00 Active Medications Acetaminophen (Tylenol -) 650 mg PO Q4H PRN PRN Reason: FEVER OR PAIN Aclidinium [place] (Tudorza -) 1 puff IH BID [facility] Last Admin: 09/25/16 21:59 Dose: 1 puff Albuterol Sulfate (Ventolin 0.083% Nebulizer Soln -) 1 amp NEB QIDR [facility] Last Admin: 09/26/16 06:50 Dose: 1 amp Amlodipine Besylate (Norvasc -) 10 mg PO DAILY [facility] Last Admin: 09/25/16 09:31 Dose: 10 mg Aspirin (Ecotrin -) 81 mg PO DAILY [facility] Last Admin: 09/25/16 09:31 Dose: 81 mg Atorvastatin Calcium (Lipitor -) 10 mg PO HS [facility] Last Admin: 09/25/16 21:58 Dose: 10 mg Benzocaine/Menthol (Cepacol Lozenge -) 1 each MM PRN PRN PRN Reason: SORE THROAT Last Admin: 09/22/16 18:59 Dose: 1 each Budesonide/Formoterol Fumarate (Symbicort 160/4.5mcg -) 2 puff IH BID [facility] Last Admin: 09/25/16 21:59 Dose: 2 puff Carvedilol (Coreg -) 25 mg PO BID [facility] Last Admin: 09/25/16 21:58 Dose: 25 mg Cinacalcet (Sensipar -) 30 mg PO DAILY [facility] Last Admin: 09/25/16 09:32 Dose: 30 mg Docusate Sodium (Colace -) 100 mg PO TID [facility] Last Admin: 09/26/16 06:11 Dose: 100 mg Heparin Sodium (Porcine) (Heparin -) 5,000 unit SQ BID [facility] Last Admin: 09/25/16 21:57 Dose: 5,000 unit Insulin Aspart (Novolog Vial Sliding Scale -) 1 vial SQ ACHS [facility] PRN Reason: Protocol Last Admin: 09/26/16 06:15 Dose: 2 units Latanoprost (Xalatan 0.005% Eye Drops -) 1 drop OU HS [facility] Last Admin: 09/25/16 21:58 Dose: 1 drop Methylprednisolone Sodium Succinate (Solu-Medrol -) 40 mg IVPB Q8H-IV [facility] Last Admin: 09/26/16 02:18 Dose: 40 mg Sevelamer Carbonate (Renvela -) 1,600 mg PO TIDCM [facility] Last Admin: 09/26/16 09:27 Dose: 1,600 mg Simethicone (Mylicon -) 80 mg PO QID PRN PRN Reason: GAS Gen: NAD at rest Heart: RRR Lung: scattered rhonchi, less wheezes, better air entry Abd: soft, nontender Ext: no edema Laboratory Results - last 24 hr 09/21/16 09/25/16 09/25/16 14:45 17:14 21:54 WBC RBC Hgb Hct MCV MCHC RDW Plt Count MPV Neutrophils % Lymphocytes % Monocytes % Eosinophils % Basophils % Sodium Potassium Chloride Carbon Dioxide Anion Gap BUN Creatinine Creat Clearance w eGFR POC Glucometer 138 209 Random Glucose Calcium Phosphorus Total Bilirubin AST ALT Alkaline Phosphatase Total Protein Albumin Hep A IgM Ab Confirm Negative Hepatitis A Ab Total Positive H Hep Bs Antigen Negative Hep Bs Antibody Reactive Hep B Core Total Ab Negative 09/25/16 09/26/16 09/26/16 22:01 06:12 11:09 WBC 7.2 RBC 3.47 L Hgb 11.5 L Hct 34.3 L MCV 98.8 H MCHC 33.4 RDW 15.7 Plt Count 122 L MPV 8.4 Neutrophils % 90.3 H Lymphocytes % 5.9 L D Monocytes % 3.7 L Eosinophils % 0.0 Basophils % 0.1 Sodium Potassium Chloride Carbon Dioxide Anion Gap BUN Creatinine Creat Clearance w eGFR POC Glucometer 117 173 Random Glucose Calcium Phosphorus Total Bilirubin AST ALT Alkaline Phosphatase Total Protein Albumin Hep A IgM Ab Confirm Hepatitis A Ab Total Hep Bs Antigen Hep Bs Antibody Hep B Core Total Ab 09/26/16 09/26/16 09/26/16 11:09 11:09 11:58 WBC RBC Hgb Hct MCV MCHC RDW Plt Count MPV Neutrophils % Lymphocytes % Monocytes % Eosinophils % Basophils % Sodium 128 L Potassium 4.6 Chloride 84 L Carbon Dioxide 24 Anion Gap 20 H BUN 108 H* D Creatinine 11.8 H* Creat Clearance w eGFR 4.22 POC Glucometer 138 Random Glucose 137 H Calcium 7.6 L Phosphorus 7.3 H Total Bilirubin 0.5 AST 16 ALT 21 Alkaline Phosphatase 58 Total Protein 5.4 L Albumin 3.0 L Hep A IgM Ab Confirm Hepatitis A Ab Total Hep Bs Antigen Hep Bs Antibody Hep B Core Total Ab A/P Acute Hypoxic Respiratory Failure improving Acute COPD Exacerbation Acute Bronchitis ESRD on HD HTN DM Lung Nodule - can decrease medrol to 40mg Q12h - inhaled bronchodilators - o2 as needed - HD per renal - continue antibiotics - Will need outpatient f/u of lung nodule - DVT prophylaxis Dr Pendleton
[2016-09-26] MEDS: ASPIRIN COATED 81 MG TABLET.EC PO SCH (16:16)
[2016-09-26] MEDS: CARVEDILOL 25 MG TABLET (FP) PO SCH (16:16)
[2016-09-26] MEDS: amLODIPine BESYLATE 10 MG TABLET (FP) PO SCH (16:17)
[2016-09-26] MEDS: CINACALCET HCL 30 MG TAB (FP) PO SCH (16:17)
--- NOTE | 2016-09-26 17:28 | PN ---
Teaching Attending Note Name of Resident: Theodore Miner ATTENDING PHYSICIAN STATEMENT I saw and evaluated the patient. I reviewed the resident's note and discussed the case with the resident. I agree with the resident's findings and plan as documented. SUBJECTIVE: Patient is comfortable with no acute distress, no shortness of breath, no fever or chills. OBJECTIVE: Vital Signs Temperature 97.8 F 09/26/16 15:55 Pulse Rate 65 09/26/16 17:00 Respiratory Rate 18 09/26/16 17:00 Blood Pressure 109/70 09/26/16 17:00 O2 Sat by Pulse Oximetry (%) 100 09/26/16 09:00 CBCD WBC 7.2 K/mm3 (4.0-10.0) 09/26/16 11:09 RBC 3.47 M/mm3 (4.00-5.60) L 09/26/16 11:09 Hgb 11.5 GM/dL (11.7-16.9) L 09/26/16 11:09 Hct 34.3 % (35.4-49) L 09/26/16 11:09 MCV 98.8 fl (80-96) H 09/26/16 11:09 MCHC 33.4 g/dl (32.0-35.9) 09/26/16 11:09 RDW 15.7 % (11.9-15.9) 09/26/16 11:09 Plt Count 122 K/MM3 (134-434) L 09/26/16 11:09 MPV 8.4 fl (7.5-11.1) 09/26/16 11:09 CMP Sodium 128 mmol/L (136-145) L 09/26/16 11:09 Potassium 4.6 mmol/L (3.5-5.1) 09/26/16 11:09 Chloride 84 mmol/L (98-107) L 09/26/16 11:09 Carbon Dioxide 24 mmol/L (21-32) 09/26/16 11:09 Anion Gap 20 (8-16) H 09/26/16 11:09 BUN 108 mg/dL (7-18) H* D 09/26/16 11:09 Creatinine 11.8 mg/dL (0.7-1.3) H* 09/26/16 11:09 Creat Clearance w eGFR 4.22 (>60) 09/26/16 11:09 Random Glucose 137 mg/dL (74-106) H 09/26/16 11:09 Calcium 7.6 mg/dL (8.5-10.1) L 09/26/16 11:09 Total Bilirubin 0.5 mg/dL (0.2-1.0) 09/26/16 11:09 AST 16 U/L (15-37) 09/26/16 11:09 ALT 21 U/L (12-78) 09/26/16 11:09 Alkaline Phosphatase 58 U/L (45-117) 09/26/16 11:09 Total Protein 5.4 g/dl (6.4-8.2) L 09/26/16 11:09 Albumin 3.0 g/dl (3.4-5.0) L 09/26/16 11:09 CARDIAC ENZYMES Creatine Kinase 199 IU/L (39-308) 09/21/16 19:00 Troponin I 0.11 ng/ml (0.00-0.05) H 09/22/16 06:20 Current Medications Generic Name Dose Route Start Last Admin Trade Name Freq PRN Reason Stop Dose Admin Acetaminophen 650 mg 09/21/16 09:42 Tylenol - PO Q4H PRN FEVER OR PAIN Aclidinium [place] 1 puff 09/23/16 22:00 09/25/16 21:59 Tudorza - IH 1 puff BID [facility] Administration Albuterol Sulfate 1 amp 09/23/16 18:00 09/26/16 11:25 Ventolin 0.083% Nebulizer Soln - NEB 1 amp QIDR [facility] Administration Amlodipine Besylate 10 mg 09/21/16 10:00 09/26/16 16:17 Norvasc - PO Not Given DAILY [facility] Aspirin 81 mg 09/21/16 10:00 09/26/16 16:16 Ecotrin - PO Not Given DAILY [facility] Atorvastatin Calcium 10 mg 09/21/16 22:00 09/25/16 21:58 Lipitor - PO 10 mg HS [facility] Administration Benzocaine/Menthol 1 each 09/22/16 18:12 09/22/16 18:59 Cepacol Lozenge - MM 1 each PRN PRN Administration SORE THROAT Budesonide/Formoterol Fumarate 2 puff 09/21/16 22:00 09/25/16 21:59 Symbicort 160/4.5mcg - IH 2 puff BID [facility] Administration Carvedilol 25 mg 09/21/16 10:00 09/26/16 16:16 Coreg - PO Not Given BID [facility] Cinacalcet 30 mg 09/21/16 10:00 09/26/16 16:17 Sensipar - PO Not Given DAILY [facility] Docusate Sodium 100 mg 09/21/16 14:00 09/26/16 16:17 Colace - PO Not Given TID [facility] Heparin Sodium (Porcine) 5,000 unit 09/21/16 10:00 09/25/16 21:57 Heparin - SQ 5,000 unit BID [facility] Administration Insulin Aspart 1 vial 09/21/16 11:00 09/26/16 16:17 Novolog Vial Sliding Scale - SQ Not Given ACHS [facility] Protocol Latanoprost 1 drop 09/21/16 10:00 09/25/16 21:58 Xalatan 0.005% Eye Drops - OU 1 drop HS [facility] Administration Methylprednisolone Sodium Succinate 40 mg 09/26/16 22:00 Solu-Medrol - IVPB BID [facility] Sevelamer Carbonate 1,600 mg 09/23/16 17:30 09/26/16 09:27 Renvela - PO 1,600 mg TIDCM [facility] Administration Simethicone 80 mg 09/25/16 16:22 Mylicon - PO QID PRN GAS Home Medications Medication Instructions Recorded Amlodipine Besylate [Norvasc -] 10 mg PO DAILY 12/17/14 Aspirin [Ecotrin] 81 mg PO DAILY 12/17/14 Carvedilol 25 mg PO BID 12/17/14 Glimepiride 4 mg PO BID 12/17/14 Ipratropium/Albuterol Sulfate 14.7 gm IH DAILY 12/17/14 [Combivent Respimat Inhal [place]] Latanoprost 0.005% Eye Drops 0.005 drop OU DAILY 12/17/14 [Xalatan 0.005% Eye Drops -] Salmeterol/Fluticasone [Advair 1 inh IH DAILY 12/17/14 100Mcg/50Mcg -] Sevelamer Carbonate [Renvela -] 800 mg PO TID 12/17/14 Simvastatin [Zocor -] 20 mg PO HS 12/17/14 Sitagliptin Phosphate [Januvia] 25 mg PO DAILY 12/17/14 Tiotropium [place] [Spiriva] 18 mcg IH DAILY 12/17/14 Docusate Sodium [Colace -] 100 mg PO TID 09/21/16 Prednisone 10 mg PO DAILY #17 tablet 09/26/16 ASSESSMENT AND PLAN: PE: as per resident's note ASSESSMENT AND PLAN: Patient is a 75 year old Gentleman with PMhx of ESRD on HD (MWF), COPD, Hypertension, DM Type 2 who presented from the dialysis unit with difficulty breathing and found to have acute COPD exacerbation. # s/p COPD exacerbation s/p IV solu medrol 60mg reduced to 40mg Iv , is being discharged home on a tapered dose of steroid 40mg tapered over 6 days , continue Nebs txs , Zithromax. Pulmonary consult appreciated . # Reported Bone infarct in the proximal left humerus ; Patient went for bone scan will follow with . #ESRD on HD (MWF) Dr Zavala on the case, On HD today ; continue Sensipar, Renvela, check phos and calcium level. as per patient can go home once dialysis is done . will follow # Hx of DM continue meds # Hx of Cataract continue Xalatan # Hx of HTN continue meds. getting discharged post dialysis today
[2016-09-26] MEDS: HEPARIN NA (PORCINE) 5,000 UNITS/ML 1ML VIAL SQ SCH (18:48)
[2016-09-26 20:30] VITALS: BP 125/55; PULSE 95; TEMP 98.4
[2016-09-26] MEDS ORDERED: methylPREDNISolone NA SUCC 40 MG/1 ML VIAL IVPB SCH (22:00)
[2016-09-27 14:16] LABS: Hgb A2 2.5 % (0.7-3.1)
--- NOTE | 2016-09-27 16:47 | DS ---
Addendum entered and electronically signed by Theodore Miner RES 09/28/16 07: 31: Addendum entered and electronically signed by Theodore Miner RES 09/28/16 07: 30: Original Note: Physical Exam: SUBJECTIVE: Patient seen and examined at bedside. No overnight events. No new complaints. Breathing has returned to baseline. Denies CP,DANIELS, abd.pain, palpitations, N/V. OBJECTIVE: Vital Signs Period Temp Pulse Resp BP Sys/Mota Pulse Ox Last 24 Hr 98.4 F 65-95 18-24 95-234/55-83 PHYSICAL EXAM GENERAL: Awake, alert, and fully oriented, EARS, NOSE, THROAT: oropharynx clear without exudates. NECK: Normal range of motion, supple without lymphadenopathy, JVD, LUNGS: b/l air entry improved, b/l wheezing decreased HEART:s1s2 normal ABDOMEN: Soft, nontender, not distended, normoactive bowel sounds, UPPER EXTREMITIES: 2+ pulses, warm, well-perfused. . LOWER EXTREMITIES: warm, . No calf tenderness. No peripheral edema. LABS Laboratory Results - last 24 hr 09/25/16 07:15 Hemoglobin A 97.5 Hemoglobin A2 2.5 Hemoglobin C 0 Hemoglobin S 0 Variant Hemoglobin TNP Hemoglobin Interpret Maternal Rh 0 Hemoglobin Solubility Negative PTH Intact 638 H HOSPITAL COURSE: Patient was admitted for acute respiratory failure 2/2 acute exacerbation of COPD. Patient was given daily IV Soumedrol which was tapered. Also given a 5 day course of IV Azithromycin. Duonebs given standing and PRN. Patient improved clinically and breathing has returned to baseline.Patient is being discharged with jina of oral Prednisone for 6 days and restart his home breathing treatments. No indication for home O2 at this time. For his ESRD patient was dialyzed three times during this admission. Will need to follow up with his data collector as outpatient. 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 Patient medically stable for discharge. Date of Admission:09/21/16 Date of Discharge: 09/27/16 Minutes to complete discharge: 33 Discharge Summary Reason For Visit: SOB,COPD,ESRD ON DIALYSIS - Instructions Diet, Activity, Other Instructions: follow with the result of bone scan Referrals: Bonilla Leslie MD [Primary Care Provider] - Bean Zavala MD [Staff Physician] - Disposition: HOME - Home Medications Comprehensive Discharge Medication List: Ambulatory Orders Amlodipine Besylate [Norvasc -] 10 mg PO DAILY 12/17/14 Aspirin [Ecotrin] 81 mg PO DAILY 12/17/14 Carvedilol 25 mg PO BID 12/17/14 Glimepiride 4 mg PO BID 12/17/14 Ipratropium/Albuterol Sulfate [Combivent Respimat Inhal [place]] 14.7 gm IH DAILY 12/17/14 Latanoprost 0.005% Eye Drops [Xalatan 0.005% Eye Drops -] 0.005 drop OU DAILY Salmeterol/Fluticasone [Advair 100Mcg/50Mcg -] 1 inh IH DAILY 12/17/14 Sevelamer Carbonate [Renvela -] 800 mg PO TID 12/17/14 Simvastatin [Zocor -] 20 mg PO HS 12/17/14 Sitagliptin Phosphate [Januvia] 25 mg PO DAILY 12/17/14 Tiotropium [place] [Spiriva] 18 mcg IH DAILY 12/17/14 Docusate Sodium [Colace -] 100 mg PO TID 09/21/16 Prednisone 10 mg PO DAILY #17 tablet 09/26/16 Problem List - Problems (1) COPD exacerbation (2) Bone infarct (3) Diabetes (4) ESRD (end stage renal disease) on dialysis (5) HTN (hypertension) (6) DVT prophylaxis This patient is new to me today: No Emergency Visit: Yes ED Registration Date: 09/21/16 Care time: The patient presented to the Emergency Department on the above date and was hospitalized for further evaluation of their emergent condition. Critical Care patient: No - Discharge Referral Referred to [facility] Med P.C.: No
== END 2016-09-26 19:57 | disposition home or self-care (01) | DRG 189 ==
LOC: JER 06:42 → JERBED 10:09 → J5S 13:56
PROVIDERS: ADMIT Internal Medicine; ATTEND Internal Medicine
PROC: 5A1D60Z (ICD-10-PCS; principal; 2016-09-26)
DX: J96.01 Acute respiratory failure with hypoxia (principal); N18.6 End stage renal disease; J44.1 Chronic obstructive pulmonary disease with (acute) exacerbation; I12.0 Hypertensive chronic kidney disease with stage 5 chronic kidney disease or end stage renal disease; E87.1 Hypo-osmolality and hyponatremia; J44.0 Chronic obstructive pulmonary disease with (acute) lower respiratory infection; Z99.2 Dependence on renal dialysis; E11.22 Type 2 diabetes mellitus with diabetic chronic kidney disease; J20.9 Acute bronchitis, unspecified; R91.1 Solitary pulmonary nodule; N25.0 Renal osteodystrophy; J06.9 Acute upper respiratory infection, unspecified; E87.5 Hyperkalemia
CPT/HCPCS: 36415; 71010-TC; 71250-TC; 78306-TC; 80048; 80053; 82550; 82553; 82565; 83021; 83735; 83880; 83970; 84100; 84484; 84520; 85025; 85027; 85660; 86704; 86706; 86708; 86803; 87070; 87077; 87205; 87340; 87804; 93005; 93010; 94640; 99284-25; A9503; J1644